=== PATIENT | female | born 1985 | race Caucasian/White ===

== ENCOUNTER 2019-11-20 09:43 | Emergency (ER) | payer OTHER, SELFPAY ==
[~2019-11-20] VITALS: Ht 177.8 cm; Wt 100.9 kg
[2019-11-20] MEDS ORDERED: SYNT175T2 (09:52)
[2019-11-20 10:27] LABS: BASO % 0.2 % (0.0-1.0); EOS # 0.2 10^3/uL (0.0-0.5); EOS % 3.5 % (0.0-3.0); HEMATOCRIT 42.6 % (36.0-47.0); HEMOGLOBIN 14.3 g/dl (12.0-15.5); LYMPH # 2.3 10^3/uL (1.5-5.0); LYMPH % 40.4 % (24.0-44.0); MEAN CORPUSCULAR HEMOGLOBIN 30.5 pg (27.0-33.0); MEAN CORPUSCULAR HGB CONC 33.6 g/dl (32.0-36.5); MEAN CORPUSCULAR VOLUME 90.8 fl (80.0-96.0); MONO # 0.4 10^3/uL (0.0-0.8); MONO % 6.7 % (0.0-5.0); NEUTROPHILS # 2.8 10^3/uL (1.5-8.5); PLATELET COUNT, AUTOMATED 200 10^3/uL (150-450); RED BLOOD COUNT 4.69 10^6/uL (4.00-5.40); WHITE BLOOD COUNT 5.7 10^3/uL (4.0-10.0)
[2019-11-20] MEDS ORDERED: KETOROLAC 30 MG/ML 1ML VIAL IM ONE (10:30)
[2019-11-20 10:48] LABS: ERYTHROCYTE SEDIMENTATION RATE 9 mm/hr (0-20)
[2019-11-20 11:05] VITALS: BP 110/65
[2019-11-20] MEDS ORDERED: PERCOCET 5MG/325MG TAB PO ONE (11:15)
[2019-11-20] MEDS ORDERED: NAPR-837 PO (11:49)
[2019-11-21] MEDS ORDERED: ULTR50TA8 PO (11:49)
[2019-11-21] MEDS ORDERED: PRED20TA PO (11:49)
--- NOTE | 2019-12-09 08:32 | REP ---
DUPLEX EXTREMITY VENOUS ULTRASOUND RIGHT LOWER EXTREMITY (REPEAT DICTATION) HISTORY: Pain. Preliminary report is provided at the time of exam by [facility]. FINDINGS: Deep veins are anechoic and fully compressible from the groin to the popliteal fossa in the right lower extremity on two-dimensional scanning. Color flow imaging is homogeneous. Spectral Doppler interrogation demonstrates intact respiration various and flow and normal manual augmentation and flow. There is no evidence of deep vein thrombosis (DVT). IMPRESSION: Negative right lower extremity duplex venous ultrasound. No evidence of deep vein thrombosis. MTDD
--- NOTE | 2019-12-09 08:33 | REP ---
RIGHT KNEE SERIES: 5-VIEW (REPEAT DICTATION) Preliminary report is provided. HISTORY: Pain in the right knee. Preliminary report is provided at the time of exam by [facility]. FINDINGS: Five views of the right knee demonstrate normal bones, joints, and soft tissues. No fracture or subluxation is seen. IMPRESSION: No traumatic abnormality noted. MTDD
--- NOTE | 2019-12-09 08:34 | REP ---
PELVIS RIGHT HIP (REPEAT DICTATION) HISTORY: Pain in the right hip. Preliminary report is provided at the time of exam by [facility]. FINDINGS: AP view of the pelvis and AP and frog leg views of the right hip are obtained. Femoral head is smooth and round. Hip joint space is preserved. Periarticular soft tissues are unremarkable. No fracture is seen. Visualized bowel gas pattern is normal. IMPRESSION: Negative views of the pelvis and right hip. MTDD
== END 2019-11-20 12:04 | disposition home or self-care (01) ==
LOC: M ED 09:43
DX: M79.651 Pain in right thigh (principal); E06.3 Autoimmune thyroiditis; F17.210 Nicotine dependence, cigarettes, uncomplicated; Z88.8 Allergy status to other drugs, medicaments and biological substances; Z79.899 Other long term (current) drug therapy
CPT/HCPCS: 36415; 73502; 73564; 85025; 85652; 86140; 93971; 96372; 99284; J1885

== ENCOUNTER 2019-11-21 08:17 | Emergency (ER) | payer OTHER ==
[~2019-11-21 08:17] MED LIST: NAPR-837 PO; SYNT175T2
[2019-11-21] MEDS ORDERED: MORPHINE 2 MG/ML 1ML VIAL (J2270) IV ONE (09:15)
[2019-11-21] MEDS ORDERED: methylPREDNISolone 125MG 2ML VIAL IV ONE (09:15)
[2019-11-21 09:44] LABS: BASO % 0.2 % (0.0-1.0); EOS # 0.2 10^3/uL (0.0-0.5); EOS % 2.8 % (0.0-3.0); HEMATOCRIT 39.6 % (36.0-47.0); HEMOGLOBIN 13.5 g/dl (12.0-15.5); LYMPH # 2.4 10^3/uL (1.5-5.0); LYMPH % 44.9 % (24.0-44.0); MEAN CORPUSCULAR HEMOGLOBIN 30.7 pg (27.0-33.0); MEAN CORPUSCULAR HGB CONC 34.1 g/dl (32.0-36.5); MONO # 0.3 10^3/uL (0.0-0.8); MONO % 5.4 % (0.0-5.0); NEUTROPHILS # 2.5 10^3/uL (1.5-8.5); NEUTROPHILS % 46.5 % (36.0-66.0); PLATELET COUNT, AUTOMATED 178 10^3/uL (150-450); WHITE BLOOD COUNT 5.4 10^3/uL (4.0-10.0)
[2019-11-21] MEDS ORDERED: ALBUTEROL 90 MCG/ACT 8GM HFA INHALER INH ONE (09:45)
[2019-11-21 10:06] LABS: BLOOD UREA NITROGEN 6 MG/DL (7-18); CALCIUM LEVEL 8.8 MG/DL (8.5-10.1); CARBON DIOXIDE LEVEL 26 MEQ/L (21-32); CHLORIDE LEVEL 109 MEQ/L (98-107); CPK CREATINE PHOSPHOKINASE 187 U/L (26-192); CREATININE FOR GFR 1.04 MG/DL (0.55-1.30); GLOMERULAR FILTRATION RATE > 60.0 (>60); GLUCOSE, FASTING 99 MG/DL (70-100); POTASSIUM SERUM 3.8 MEQ/L (3.5-5.1); SODIUM LEVEL 139 MEQ/L (136-145)
[2019-11-21] MEDS ORDERED: PERCOCET 5MG/325MG TAB PO ONE (10:15)
[2019-11-21] MEDS ORDERED: ISOVUE-370 76% 100ML VIAL As Ordered ONE (10:16)
--- NOTE | 2019-11-21 11:23 | REPVR ---
PROCEDURE INFORMATION: Exam: CT Lumbar Spine Without Contrast Exam date and time: 11/21/2019 11:00 AM Age: 34 years old Clinical indication: Pain; Lumbago with sciatica; Additional info: Rlq, thigh pain TECHNIQUE: Imaging protocol: Computed tomography images of the lumbar spine without contrast. Radiation optimization: All CT scans at this facility use at least one of these dose optimization techniques: automated exposure control; mA and/or kV adjustment per patient size (includes targeted exams where dose is matched to clinical indication); or iterative reconstruction. COMPARISON: No relevant prior studies available. FINDINGS: Vertebrae: No acute lumbar spine fracture or traumatic malalignment. Discs/Spinal canal/Neural foramina: Circumferential disc bulge and right foraminal eccentric discogenic osteophytes are present at L5-S1, with likely moderate right neural foraminal narrowing. Mild multilevel degenerative disc disease. Soft tissues: Unremarkable. IMPRESSION: Degenerative changes at L5-S1 likely with moderate right neural foraminal narrowing. Degenerative findings could be better assessed with MRI. Electronically signed by: Raad Greene On 11/21/2019 11:23:08 AM
[2019-11-21] MEDS ORDERED: ULTR50TA8 PO (11:49)
[2019-11-21] MEDS ORDERED: PRED20TA PO (11:49)
[2019-11-21 11:58] VITALS: BP 123/68
--- NOTE | 2019-11-22 12:42 | ED PDOC ---
Post-Departure Follow-Up ct ls spine faxed to [facility] [place] for fu Mahamed Berger MD Nov 22, 2019 12:42
== END 2019-11-21 12:00 | disposition home or self-care (01) ==
LOC: M ED 08:17 → EDBD 08:17 → M ED 12:00
DX: M51.37 Other intervertebral disc degeneration, lumbosacral region (principal); M54.17 Radiculopathy, lumbosacral region; Z79.899 Other long term (current) drug therapy; Z88.6 Allergy status to analgesic agent
CPT/HCPCS: 72131; 72193; 80048; 82550; 85025; 86140; 96374; 96375; 99284; J2270; J2930; Q9967

== ENCOUNTER → 2019-12-03 | Outpatient (CLI) | payer MEDICAID, SELFPAY ==
[~2019-12-03] MED LIST changes: +DUCO5TAB2 PO; +GABA-1171 PO; +MIRA3350 PO; +MORP15TASA PO; +ONDA-83 PO; +PERC5TAB12 PO; +PRED20TA PO; +ULTR50TA8 PO
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
== END ==
LOC: M RAD 07:08
PROVIDERS: ATTEND Physician Assistant
DX: M79.651 Pain in right thigh (principal)

== ENCOUNTER → 2019-12-14 | Outpatient (CLI) | payer MEDICAID ==
--- NOTE | 2019-12-14 09:02 | REPVR ---
PROCEDURE INFORMATION: Exam: MR Lumbar Spine Without Contrast. Exam date and time: 12/14/2019 7:54 AM Age: 34 years old Clinical indication: Low back pain; Additional info: Disc degeneration, R/O herniation TECHNIQUE: Imaging protocol: Multiplanar magnetic resonance images of the lumbar spine without intravenous contrast. COMPARISON: CT Spine, lumbar w/o contrast 11/21/2019 10:55 AM FINDINGS: Vertebrae: There is no fracture or listhesis. Aside from endplate changes at L2/3 and L5/S1, marrow signal is within normal limits. Spinal cord: Normal signal. No cord compression. L1-L2: There is shallow disc bulging. There is mild facet hypertrophy. There is mild bilateral neural foraminal narrowing. L2-L3: There is shallow disc bulging with a central annular tear. There is mild facet hypertrophy. There is mild bilateral neural foraminal narrowing. L3-L4: There is shallow disc bulging with a central annular tear. There is [id number]-[id number] facet hypertrophy. There is moderate right and mqvj-[id number]-[id number] left neural foraminal narrowing. L4-L5: There is diffuse disc bulging. There is moderate facet hypertrophy. There is mild bilateral lateral recess stenosis. There is mild canal stenosis. There is moderate right and mild left neural foraminal narrowing. L5-S1: There is diffuse disc bulging with a large right inferior subarticular disc extrusion. This effaces the right lateral recess and displaces the right S1 nerve root posteriorly. There is moderate to severe facet hypertrophy. There is moderate right and mild left neural foraminal narrowing. Soft tissues: Unremarkable. IMPRESSION: Large right inferior subarticular disc extrusion at L5/S1 results in probable compromise of the right S1 nerve root. Electronically signed by: Marcia Ramos On 12/14/2019 09:02:43 AM
== END ==
LOC: M RAD 07:09
PROVIDERS: ATTEND Physician Assistant
DX: M51.36 Other intervertebral disc degeneration, lumbar region (principal); M51.27 Other intervertebral disc displacement, lumbosacral region

== ENCOUNTER 2019-12-17 23:36 | Emergency (ER) | payer MEDICAID, OTHER ==
[~2019-12-17] VITALS: Ht 177.8 cm; Wt 104.5 kg
[~2019-12-17 23:36] MED LIST changes: -DUCO5TAB2 PO; -GABA-1171 PO; -MIRA3350 PO; -MORP15TASA PO; -ONDA-83 PO; -PERC5TAB12 PO
[2019-12-17] MEDS ORDERED: GABA-1171 PO (23:47)
[2019-12-18 01:12] VITALS: BP 139/83
[2019-12-19] MEDS ORDERED: PERC5TAB12 PO (06:13)
[2019-12-19] MEDS ORDERED: MORP15TASA PO (07:18)
== END 2019-12-18 01:16 | disposition home or self-care (01) ==
LOC: M ED 23:36
DX: Z11.59 Encounter for screening for other viral diseases (principal); Z20.828 Contact with and (suspected) exposure to other viral communicable diseases; M54.5 Low back pain; Z79.899 Other long term (current) drug therapy
CPT/HCPCS: 99283; U0002

== ENCOUNTER 2019-12-18 06:17 | Day surgery (SDC) | payer MEDICAID, OTHER ==
[~2019-12-18] VITALS: Ht 180.3 cm; Wt 99.1 kg
[2019-12-18] VITALS (7 sets, daily range): BP systolic 111–149; BP diastolic 64–85
[~2019-12-18 06:17] MED LIST changes: +CelecoXIB (CeleBREX) 100 MG CAP PO ONE; +GABA-1171 PO; +NORCO, ANEXSIA 5/325MG TABLET (HYDROcodone/ACETAMINOPHEN) PO ONE
[2019-12-18] MEDS ORDERED: LIDOCAINE 2% 100MG/5ML SDV (FOR ANES.) As Ordered ONE (07:49)
[2019-12-18] MEDS ORDERED: ROCURONIUM BROMIDE 50 MG/5 ML VIAL As Ordered ONE ×2 (07:49→09:12)
[2019-12-18] MEDS ORDERED: HYDROmorphone HCL 2 MG/ML 1ML VIAL (J1170) As Ordered ONE (07:49)
[2019-12-18] MEDS ORDERED: propofoL 200 MG/20 ML VIAL As Ordered ONE (07:49)
[2019-12-18] MEDS ORDERED: KETAMINE HCL 200 MG/20 ML VIAL As Ordered ONE (07:49)
[2019-12-18] MEDS ORDERED: MIDAZOLAM INJ 2MG/2ML VIAL (J2250 PER 1MG) As Ordered ONE (07:49)
[2019-12-18] MEDS ORDERED: ONDANSETRON 4MG/2ML VIAL As Ordered ONE (07:50)
[2019-12-18] MEDS ORDERED: dexameTHASONE 4 MG/ML 1ML VIAL (J1100 PER 1MG) As Ordered ONE (07:50)
[2019-12-18] MEDS ORDERED: BUPIVACAINE/EPIN 0.25% 30 ML VIAL As Ordered ONE (07:54)
[2019-12-18] MEDS ORDERED: BACITRACIN PWD 50,000 UNITS VIAL As Ordered ONE (07:54)
[2019-12-18] MEDS ORDERED: THROMBIN SOLN 20,000 UNITS KIT As Ordered ONE (07:54)
[2019-12-18] MEDS ORDERED: NORCO, ANEXSIA 5/325MG TABLET (HYDROcodone/ACETAMINOPHEN) As Ordered ONE (08:16)
[2019-12-18] MEDS ORDERED: ceFAZolin 2 GM/D5W 50 ML IV BAG (J0690 PER 500MG) As Ordered ONE (08:19)
[2019-12-18] MEDS ORDERED: GABAPENTIN 300 MG CAP PO ONE (08:21)
[2019-12-18] MEDS ORDERED: ceFAZolin SOD 2 GM in IV 1 EA IV ONE (08:30)
[2019-12-18] MEDS ORDERED: METOCLOPRAMIDE INJ 10MG/2ML VIAL (J2765 PER 1) As Ordered ONE (09:21)
[2019-12-18] MEDS ORDERED: SUGAMMADEX SODIUM 500 MG/5 ML VIAL (BRIDION) As Ordered ONE ×2 (09:23→10:43)
[2019-12-18] MEDS ORDERED: GLYCOPYRROLATE INJ 0.2 MG/ML 2 ML VIAL As Ordered ONE (10:05)
[2019-12-18] MEDS ORDERED: HYDROMORPHONE HCL 0.5 MG/ 0.5 ML SYRINGE (J1170 PER 1) As Ordered ONE ×3 (11:11→11:41)
[2019-12-18] MEDS: HYDROMORPHONE HCL 0.5 MG/ 0.5 ML SYRINGE (J1170 PER 1) IV PRN ×6 (11:13→21:28)
[2019-12-18] MEDS ORDERED: PROMETHAZINE INJ 25 MG/ML VIAL (J2550) IV PRN ×2 (11:30→18:00)
[2019-12-18] MEDS ORDERED: METOCLOPRAMIDE INJ 10MG/2ML VIAL (J2765 PER 1) IV PRN (11:30)
[2019-12-18] MEDS ORDERED: PERCOCET 5MG/325MG TAB PO PRN ×2 (11:30)
[2019-12-18] MEDS ORDERED: LR 1,000 ML IV SCH ×2 (11:30)
[2019-12-18] MEDS ORDERED: ONDANSETRON 4MG/2ML VIAL IV PRN ×2 (11:30)
[2019-12-18] MEDS ORDERED: PERCOCET 5MG/325MG TAB As Ordered ONE (11:53)
[2019-12-18] MEDS ORDERED: METAMUCIL (PSYLLIUM) PACKET PO ONE (12:00)
[2019-12-18] MEDS ORDERED: CelecoXIB (CeleBREX) 100 MG CAP PO ONE (14:00)
[2019-12-18] MEDS: CYCLOBENZAPRINE 10MG TABLET PO PRN (14:58)
[2019-12-18] MEDS: PERCOCET 5MG/325MG TAB PO PRN (14:58)
[2019-12-19] MEDS: PERCOCET 5MG/325MG TAB PO PRN ×3 (00:18→09:26)
[2019-12-19 02:00] VITALS: BP 115/72
[2019-12-19] MEDS: HYDROMORPHONE HCL 0.5 MG/ 0.5 ML SYRINGE (J1170 PER 1) IV PRN (02:34)
[2019-12-19] MEDS: CYCLOBENZAPRINE 10MG TABLET PO PRN (04:33)
[2019-12-19 04:39] VITALS: BP 129/76
[2019-12-19] MEDS ORDERED: PERC5TAB12 PO (06:13)
[2019-12-19] MEDS ORDERED: MORP15TASA PO (07:18)
[2019-12-19] MEDS ORDERED: CelecoXIB 400 MG CAP PO ONE (09:00)
[2019-12-19] MEDS ORDERED: MORPHINE 15 MG SA TAB PO SCH (09:00)
--- NOTE | 2019-12-20 08:36 | RO ---
DATE OF OPERATION: 12/18/2019 PREOPERATIVE DIAGNOSIS: Lumbar spinal stenosis with neurogenic claudication/right lower extremity radiculopathy, L5/S1 secondary to large extruded inferiorly migrated disk herniation. POSTOPERATIVE DIAGNOSIS: Lumbar spinal stenosis with neurogenic claudication/right lower extremity radiculopathy, L5/S1 secondary to large extruded inferiorly migrated disk herniation. PROCEDURE: Right S1 unilateral laminectomy for decompression of the thecal sac traversing and exiting nerve roots and exposure of extruded migrated disk material. L5 unilateral laminectomy additional level for decompression of thecal sac and exiting its traversing nerve roots. INTRAOPERATIVE FINDINGS: Included large extruded disk herniation inferiorly migrated subligamentous producing severe spinal stenosis. SURGEON: Hasmukh Corbin MD CHIEF LEARNING OFFICER: KARL Florence ANESTHESIA: General, Dr. Rodriguez ESTIMATED BLOOD LOSS: Less than 50, replaced with Crystalloid COMPLICATIONS: No complications. INDICTIONS: 34-year-old female with intractable discomfort radiating down the right lower extremity for a period of more than 5 weeks. Symptoms include sensory deficit, motor deficit and severe pain, MRI evidence of large inferiorly migrated right-sided disk extrusion producing severe spinal stenosis in the right side of the spinal canal. Consent reviewed in detail including a rommel discussion with pathology involved, with procedure proposed, alternatives including doing nothing, risks including but not limited to pain, failure, infection, bleeding, blood loss, incomplete relief of symptoms, need for additional surgery and other issues. This surgery was scheduled urgently because of the neurologic deficit, as well as the patient's intractable discomfort. OPERATIVE COURSE: Identified in the holding area, side and site verified, brought to the operating room. Anesthesia was administered. She was positioned in the prone position for exposure of the lumbar spine. Time-out was accomplished. The patient was prepped and draped in the usual fashion for exposure. Line of the incision based on palpation of landmark, infiltrated with 25% Marcaine with epinephrine. Mr. Gillespie stood on the left, I stood on the right. I utilized 3.5 Loupe magnification at the beginning of the procedure. 10 blade was utilized to open the incision, developed down to subcuticular tissues to posterior lumbar fascia. Posterior lumbar fascia was reflected off the spinous process of 5, continuing the right side dissection along the L5 lamina exposing the L5/S1 facet complex and exposing S1. Next, high-speed bur was utilized to drill a divot in the posterior lamina of L5 on the right side. Dusty Whittey was placed in the divot. Cross-table lateral x-ray taken to verify level. Next, at this stage, my loupe magnification was removed and the operating microscoped had been draped and was brought into the operating procedure so that Mr. Gillespie could participate and for safe use of the high- speed bur. Mr. Gillespie looked through oculars on the left side and utilized suction, as well as suction Alexandra to assist with exposure and root retraction. Next, I utilized the high speech bur to implement a right unilateral laminectomy of S1 extending superiorly undercutting the spinous process of S1 extending to the bare area of S1. Care was taken to protect the facet. Medial, [id number]% of the L5/S1 facet complex was removed to allow for exposure. The dissection continued inferiorly through the bare area of S1 and then beyond using high-speed bur. Next, once the bony exposure was accomplished by utilizing curettes and Kerrisons to remove hypertrophied ligamentum flavum, this exposed the thecal sac. The dissection allowed exposure of the S1 and S2 nerve roots, as well as the thecal sac inferiorly. Next, the L5 nerve root was also able to be palpated in the neural foramina. Next, Dusty Whittey was utilized to sweep the S1 and S2 nerve roots over the extruded disk fragment. It was subligamentous. I opened the ligamentum using 11 blade and removed in piecemeal fashion large chunks of extruded discharge material that was causing significant spinal stenosis. Next, I explored superiorly the disk annular complex. The annulus had a compromised annulus. I was able to use the pituitaries and Moctezuma pituitaries to remove additional friable disk material from the L5/S1 interspace/disk space. Next, once this was accomplished, bipolar cautery was utilized for hemostasis; irrigation was accomplished. All retractors were removed. Posterior lumbar fascia re-approximated with interrupted stitch. Scarpas fascia with interrupted stitch. Deep dermis with interrupted stitch. Prineo dressing was applied. The patient was log rolled to the hospital bed, moved to the recovery room in good condition, moving all four extremities. For further details, please refer to medical record. [facility]
--- NOTE | 2019-12-23 07:04 | REP ---
PORTABLE CROSS TABLE LATERAL LUMBAR SPINE: SINGLE VIEW HISTORY: Intraprocedural imaging. FINDINGS: A portable cross table lateral view of the lumbar spine time stamped 9:44 a.m. documents an intraoperative probe in the dorsal aspect of the spinal canal at the level of the L4-5 intervertebral disc. WESLEY
== END 2019-12-19 10:40 | disposition home or self-care (01) ==
LOC: M SDC 06:17 → M MS5PR 06:25 → M SDC 12-19 10:40
PROVIDERS: ATTEND Orthopaedic Surgery
DX: M48.062 Spinal stenosis, lumbar region with neurogenic claudication (principal); E03.9 Hypothyroidism, unspecified; F31.9 Bipolar disorder, unspecified; F32.9 Major depressive disorder, single episode, unspecified; F41.9 Anxiety disorder, unspecified; Z79.899 Other long term (current) drug therapy
CPT/HCPCS: 63030; 63035; 72110; 88304; 96374; 96375; 96376; C1763; J0690; J1100; J1170; J2250; J2405; J2765

== ENCOUNTER 2019-12-29 08:23 | Emergency (ER) | payer MEDICAID, OTHER ==
[~2019-12-29] VITALS: Ht 177.8 cm; Wt 104.5 kg
[2019-12-29 08:23] VITALS: BP 142/79
[~2019-12-29 08:23] MED LIST changes: -CelecoXIB (CeleBREX) 100 MG CAP PO ONE; +MORP15TASA PO; -NORCO, ANEXSIA 5/325MG TABLET (HYDROcodone/ACETAMINOPHEN) PO ONE; +PERC5TAB12 PO
[2019-12-29] MEDS ORDERED: ONDA-83 PO (08:36)
[2019-12-29] MEDS ORDERED: DUCO5TAB2 PO (08:36)
[2019-12-29] MEDS ORDERED: NS 1,000 ML IV ONE (09:00)
[2019-12-29 09:21] LABS: BASO % 0.2 % (0.0-1.0); EOS # 0.3 10^3/uL (0.0-0.5); HEMATOCRIT 41.6 % (36.0-47.0); HEMOGLOBIN 13.5 g/dl (12.0-15.5); LYMPH # 2.7 10^3/uL (1.5-5.0); LYMPH % 25.9 % (24.0-44.0); MEAN CORPUSCULAR HEMOGLOBIN 29.7 pg (27.0-33.0); MEAN CORPUSCULAR HGB CONC 32.5 g/dl (32.0-36.5); MEAN CORPUSCULAR VOLUME 91.4 fl (80.0-96.0); MONO # 0.7 10^3/uL (0.0-0.8); MONO % 6.3 % (0.0-5.0); NEUTROPHILS # 6.7 10^3/uL (1.5-8.5); NEUTROPHILS % 64.1 % (36.0-66.0); PLATELET COUNT, AUTOMATED 245 10^3/uL (150-450); RED BLOOD COUNT 4.55 10^6/uL (4.00-5.40); WHITE BLOOD COUNT 10.4 10^3/uL (4.0-10.0)
[2019-12-29] MEDS ORDERED: ISOVUE-370 76% 100ML VIAL As Ordered ONE (09:37)
[2019-12-29 09:55] LABS: ALBUMIN 3.9 GM/DL (3.2-5.2); ALT/SGPT 18 U/L (12-78); BILIRUBIN,DIRECT < 0.1 MG/DL (0.0-0.2); BILIRUBIN,TOTAL 0.3 MG/DL (0.2-1.0); LIPASE 78 U/L (73-393); TOTAL PROTEIN 7.7 GM/DL (6.4-8.2)
--- NOTE | 2019-12-29 10:05 | REPVR ---
PROCEDURE INFORMATION: Exam: CT Abdomen And Pelvis With Contrast Exam date and time: 12/29/2019 9:46 AM Age: 34 years old Clinical indication: Abdominal pain; Additional info: Right lower quadrant pain TECHNIQUE: Imaging protocol: Computed tomography of the abdomen and pelvis with intravenous contrast. Radiation optimization: All CT scans at this facility use at least one of these dose optimization techniques: automated exposure control; mA and/or kV adjustment per patient size (includes targeted exams where dose is matched to clinical indication); or iterative reconstruction. Contrast material: ISO 370; Contrast volume: 100 ml; Contrast route: INTRAVENOUS (IV); COMPARISON: CT PEL W/IV CONTRAST ONLY 11/21/2019 10:55 AM FINDINGS: Liver: Normal. No mass. Gallbladder and bile ducts: The gallbladder is surgically absent, with metallic clips in the gallbladder fossa. Pancreas: Normal. No ductal dilation. Spleen: The spleen is mildly enlarged measuring 14.0 cm transversely. Adrenals: Normal. No mass. Kidneys and ureters: Normal. No hydronephrosis. Stomach and bowel: There is mildly increased stool noted in the ascending and transverse colon. Appendix: The vermiform appendix is not identified on this examination. There is, however, no pericecal abnormality to suggest appendicitis. Intraperitoneal space: Unremarkable. No free air. No significant fluid collection. Vasculature: Unremarkable. No abdominal aortic aneurysm. Lymph nodes: No enlarged lymph nodes. Urinary bladder: The urinary bladder is decompressed and difficult to assess. Reproductive: Unremarkable as visualized. Bones/joints: Unremarkable. No acute fracture. Soft tissues: A tiny paraumbilical hernia containing only abdominal fat is noted. IMPRESSION: 1. Prior cholecystectomy. 2. Mild splenomegaly. 3. Mild abdominal colonic constipation. Electronically signed by: Harsh Fernandez On 12/29/2019 10:05:01 AM
[2019-12-29] MEDS ORDERED: METHYLNALTREXONE BROMIDE 12 MG/0.6 ML VIAL (RELISTOR) SC ONE (10:15)
--- NOTE | 2019-12-29 10:58 | REPVR ---
PROCEDURE INFORMATION: Exam: US Pelvis Complete, Transabdominal and US Pelvis, Transvaginal Exam date and time: 12/29/2019 10:43 AM Age: 34 years old Clinical indication: Pelvic pain; Patient HX: Had spinal surgery 1.5 weeks ago; Additional info: Rlq pain/previous ovarian cyst TECHNIQUE: Imaging protocol: Real-time transabdominal and transvaginal pelvic ultrasound (complete) with image documentation. Transvaginal imaging was used for better evaluation of the endometrium, adnexa, and/or cervix. COMPARISON: CT ABD/PEL W/IV CONTRAST ONLY 12/29/2019 9:36 AM FINDINGS: Uterus/cervix: Uterus anteverted, 10.5 x 5.0 x 5.4 cm transabdominally; 10.1 x 4.5 x 5.8 cm transvaginally. Multiple uterine cervical nabothian cysts, largest 9 mm. Endometrium 5.0 mm transabdominally; 4.5 mm transvaginally. Right adnexa: Right ovary not identified transabdominally. 2.5 x 2.4 x 1.6 cm transvaginally. No cyst or mass. Normal color and pulsed Doppler. Left adnexa: Left ovary 1.7 x 1.6 x 1.6 cm transabdominally; 2.4 x 2.5 x 2.1 cm transvaginally. Approximately 16 mm collapsed corpus luteum. Normal color and pulsed Doppler. Intraperitoneal space: No intraperitoneal free fluid. Urinary bladder: Normal. IMPRESSION: No acute abnormality identified. Electronically signed by: Harsh Fernandez On 12/29/2019 10:57:50 AM
[2019-12-29] MEDS ORDERED: KETOROLAC 30 MG/ML 1ML VIAL IV ONE (11:00)
[2019-12-29] MEDS ORDERED: DICYCLOMINE 10 MG CAP PO ONE (12:00)
[2019-12-29] MEDS ORDERED: MIRA3350 PO (12:43)
== END 2019-12-29 13:17 | disposition home or self-care (01) ==
LOC: M ED 08:23
DX: K59.09 Other constipation (principal); E03.9 Hypothyroidism, unspecified; R16.1 Splenomegaly, not elsewhere classified; M54.9 Dorsalgia, unspecified; R51.9 Headache, unspecified; F31.9 Bipolar disorder, unspecified; F41.9 Anxiety disorder, unspecified; Z88.8 Allergy status to other drugs, medicaments and biological substances; Z79.899 Other long term (current) drug therapy
CPT/HCPCS: 36415; 74177; 76830; 76856; 80047; 80076; 81001; 83605; 83690; 84443; 84702; 85025; 93976; 96361; 96372; 96374; 99284; J1885; Q9967

== ENCOUNTER 2020-08-12 15:58 | Emergency (ER) | payer MEDICAID, OTHER ==
[~2020-08-12] VITALS: Ht 180.3 cm; Wt 93.2 kg
[~2020-08-12 15:58] MED LIST changes: +DUCO5TAB2 PO; +MIRA3350 PO; +ONDA-83 PO
--- NOTE | 2020-08-12 18:03 | REP ---
INDICATION: trauma, right radiculopathy COMPARISON: 12/18/2019 TECHNIQUE: AP, lateral, bilateral oblique, and coned-down views of the lumbar spine. FINDINGS: Alignment and lordosis maintained. Vertebral bodies are intact. No acute fracture/compression injury or subluxation. No obvious spondylolysis or spondylolisthesis. Endplate sclerosis and disc space narrowing at L5-S1 unchanged. IMPRESSION: No acute fracture/compression injury or subluxation.. <Electronically signed by Kristofer Antonio > 08/12/20 [id number]
[2020-08-12] MEDS ORDERED: ACETAMINOPHEN 325 MG TAB PO ONE (19:25)
[2020-08-12] MEDS ORDERED: traMADol 50 MG TAB PO ONE (19:25)
[2020-08-12] MEDS ORDERED: AUGM875T28 PO (20:48)
[2020-08-12] MEDS ORDERED: VENTAER INH (20:48)
[2020-08-12] MEDS ORDERED: TESS100C PO (20:48)
[2020-08-12] MEDS ORDERED: AUGMENTIN 875 MG TAB PO ONE (20:50)
[2020-08-12 21:32] VITALS: BP 129/58
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
== END 2020-08-12 21:34 | disposition home or self-care (01) ==
LOC: M ED 15:58
DX: S06.0X0A Concussion without loss of consciousness, initial encounter (principal); S33.5XXA Sprain of ligaments of lumbar spine, initial encounter; W50.0XXA Accidental hit or strike by another person, initial encounter; Y92.9 Unspecified place or not applicable; Y93.71 Activity, boxing; Y99.9 Unspecified external cause status; J32.9 Chronic sinusitis, unspecified; J20.9 Acute bronchitis, unspecified; E03.9 Hypothyroidism, unspecified; Z79.899 Other long term (current) drug therapy
CPT/HCPCS: 70450; 72110; 99283; U0003

== ENCOUNTER 2021-04-03 00:30 | Emergency (ER) | payer OTHER ==
[~2021-04-03] VITALS: Ht 180.3 cm; Wt 104.5 kg
[~2021-04-03 00:30] MED LIST changes: +AUGM875T28 PO; +TESS100C PO; +VENTAER INH
[2021-04-03 07:00] VITALS: BP 142/76
== END 2021-04-03 09:52 | disposition home or self-care (01) ==
LOC: M ED 00:30
DX: N81.4 Uterovaginal prolapse, unspecified (principal); R59.0 Localized enlarged lymph nodes; Z87.42 Personal history of other diseases of the female genital tract; N80.9 Endometriosis, unspecified; Z87.19 Personal history of other diseases of the digestive system; Z88.6 Allergy status to analgesic agent
CPT/HCPCS: 76857; 80053; 81001; 84703; 85025; 87808; 87810; 87850; 96374; 99284; J1885

== ENCOUNTER → 2021-04-26 | Outpatient (CLI) | payer OTHER ==
[2021-04-26 13:55] LABS: BASO % 0.1 % (0.0-1.0); EOS # 0.4 10^3/uL (0.0-0.5); EOS % 5.7 % (0.0-3.0); HEMATOCRIT 42.7 % (36.0-47.0); HEMOGLOBIN 13.9 g/dl (12.0-15.5); LYMPH # 3.1 10^3/uL (1.5-5.0); LYMPH % 41.1 % (24.0-44.0); MEAN CORPUSCULAR HGB CONC 32.6 g/dl (32.0-36.5); MEAN CORPUSCULAR VOLUME 92.2 fl (80.0-96.0); MONO # 0.5 10^3/uL (0.0-0.8); MONO % 6.1 % (2.0-8.0); NEUTROPHILS # 3.5 10^3/uL (1.5-8.5); NEUTROPHILS % 46.7 % (36.0-66.0); PLATELET COUNT, AUTOMATED 237 10^3/uL (150-450); RED BLOOD COUNT 4.63 10^6/uL (4.00-5.40); WHITE BLOOD COUNT 7.5 10^3/uL (4.0-10.0)
[2021-04-26 14:24] LABS: ERYTHROCYTE SEDIMENTATION RATE 12 mm/hr (0-20)
[2021-04-26 15:37] LABS: ALT/SGPT 22 U/L (12-78); BILIRUBIN,TOTAL 0.3 MG/DL (0.2-1.0); BLOOD UREA NITROGEN 11 MG/DL (7-18); C REACTIVE PROTEIN QUANTITATIV 0.73 MG/DL (0.00-0.30); CALCIUM LEVEL 9.2 MG/DL (8.5-10.1); CARBON DIOXIDE LEVEL 29 MEQ/L (21-32); CHLORIDE LEVEL 104 MEQ/L (98-107); CREATININE FOR GFR 1.02 MG/DL (0.55-1.30); FREE T4 0.61 NG/DL (0.76-1.46); GLOMERULAR FILTRATION RATE > 60.0 (>60); GLUCOSE, FASTING 99 MG/DL (70-100); POTASSIUM SERUM 4.5 MEQ/L (3.5-5.1); SODIUM LEVEL 138 MEQ/L (136-145); TOTAL PROTEIN 7.6 GM/DL (6.4-8.2)
[2021-04-26 16:07] LABS: HEMOGLOBIN A1c 5.3 %
== END ==
LOC: M PLALAB 10:41
PROVIDERS: ATTEND Physician Assistant
DX: E66.9 Obesity, unspecified (principal); Z68.35 Body mass index [BMI] 35.0-35.9, adult; G89.29 Other chronic pain; E03.9 Hypothyroidism, unspecified

== ENCOUNTER → 2021-04-27 | Outpatient (REF) | payer OTHER ==
[2021-04-27 16:36] LABS: APPEARANCE, URINE CLEAR (CLEAR); BACTERIA, URINE AUTO NEGATIVE (NEGATIVE); BILIRUBIN, URINE AUTO NEGATIVE (NEGATIVE); BLOOD, URINE BLOOD NEGATIVE (NEGATIVE); COLOR, URINE YELLOW (YELLOW); GLUCOSE, URINE (UA) AUTO NEGATIVE (NEGATIVE); KETONE, URINE AUTO NEGATIVE (NEGATIVE); LEUKOCYTE ESTERASE, URINE AUTO NEGATIVE (NEGATIVE); NITRITE, URINE AUTO NEGATIVE (NEGATIVE); PROTEIN, URINE AUTO NEGATIVE (NEGATIVE); RBC, URINE AUTO 0 /HPF (0-3); SQUAMOUS EPITHELIAL CELL UR AU 2 /HPF (0-6); UROBILINOGEN, URINE AUTO 0.2 mg/dL (0.0-2.0); WBC, URINE AUTO 0 /HPF (0-3)
== END ==
LOC: M LAB REF 16:09
PROVIDERS: ATTEND Obstetrics & Gynecology
DX: N39.46 Mixed incontinence (principal)

== ENCOUNTER → 2021-06-01 | Outpatient (CLI) | payer OTHER ==
[~2021-06-01] MED LIST changes: +BUPR300T92; +GABA-283 PO; +ONDA4TAB6 PO; +XANA2TAB2 PO
== END ==
LOC: M RAD 17:16
PROVIDERS: ATTEND Physician Assistant
DX: S96.911A Strain of unspecified muscle and tendon at ankle and foot level, right foot, initial encounter (principal); X58.XXXA Exposure to other specified factors, initial encounter; Y92.9 Unspecified place or not applicable; Y93.9 Activity, unspecified; Y99.9 Unspecified external cause status

== ENCOUNTER 2021-06-04 16:05 | Emergency (ER) | payer OTHER ==
[~2021-06-04] VITALS: Ht 182.9 cm; Wt 104.5 kg
[~2021-06-04 16:05] MED LIST changes: -BUPR300T92; -GABA-283 PO; -ONDA4TAB6 PO; -XANA2TAB2 PO
[2021-06-04] MEDS ORDERED: GABA-283 PO (16:21)
[2021-06-04] MEDS ORDERED: BUPR300T92 (16:21)
[2021-06-04] MEDS ORDERED: XANA2TAB2 PO (16:21)
[2021-06-04] MEDS ORDERED: ONDANSETRON 4MG/2ML VIAL IV ONE (18:45)
[2021-06-04] MEDS ORDERED: KETOROLAC 30 MG/ML 1ML VIAL IV ONE ×2 (18:45→20:00)
[2021-06-04] MEDS ORDERED: NS 1,000 ML IV ONE (18:45)
[2021-06-04 19:18] LABS: BASO % 0.2 % (0.0-1.0); EOS # 0.4 10^3/uL (0.0-0.5); EOS % 4.8 % (0.0-3.0); HEMATOCRIT 41.8 % (36.0-47.0); HEMOGLOBIN 14.3 g/dl (12.0-15.5); LYMPH # 3.5 10^3/uL (1.5-5.0); LYMPH % 43.1 % (24.0-44.0); MEAN CORPUSCULAR HEMOGLOBIN 29.9 pg (27.0-33.0); MEAN CORPUSCULAR HGB CONC 34.2 g/dl (32.0-36.5); MEAN CORPUSCULAR VOLUME 87.3 fl (80.0-96.0); MONO # 0.6 10^3/uL (0.0-0.8); MONO % 7.5 % (2.0-8.0); NEUTROPHILS # 3.6 10^3/uL (1.5-8.5); NEUTROPHILS % 44.2 % (36.0-66.0); PLATELET COUNT, AUTOMATED 238 10^3/uL (150-450); RED BLOOD COUNT 4.79 10^6/uL (4.00-5.40); WHITE BLOOD COUNT 8.1 10^3/uL (4.0-10.0)
[2021-06-04 19:35] LABS: BLOOD UREA NITROGEN 7 MG/DL (7-18); CARBON DIOXIDE LEVEL 30 MEQ/L (21-32); CHLORIDE LEVEL 106 MEQ/L (98-107); CREATININE FOR GFR 1.07 MG/DL (0.55-1.30); GLOMERULAR FILTRATION RATE > 60.0 (>60); GLUCOSE, FASTING 95 MG/DL (70-100); POTASSIUM SERUM 3.7 MEQ/L (3.5-5.1); SODIUM LEVEL 141 MEQ/L (136-145)
[2021-06-04] MEDS ORDERED: METOCLOPRAMIDE INJ 10MG/2ML VIAL (J2765 PER 1) IV ONE (20:00)
[2021-06-04] MEDS ORDERED: MAG SULF 1GM/100ML (MAG RUN) 1 GM in IV 1 EA IV ONE (21:25)
[2021-06-04] MEDS ORDERED: diphenhydrAMINE 50MG/ML VIAL (J1200) IV ONE (21:30)
[2021-06-04] MEDS ORDERED: ONDA4TAB6 PO (22:56)
[2021-06-04] MEDS ORDERED: ONDANSETRON 4MG ORAL DISINTEGRATING TAB PO ONE (23:05)
[2021-06-04 23:10] VITALS: BP 134/65
== END 2021-06-04 23:13 | disposition home or self-care (01) ==
LOC: M ED 16:05
DX: S06.0X0A Concussion without loss of consciousness, initial encounter (principal); W50.0XXA Accidental hit or strike by another person, initial encounter; R11.2 Nausea with vomiting, unspecified; F41.8 Other specified anxiety disorders; M51.26 Other intervertebral disc displacement, lumbar region; F31.9 Bipolar disorder, unspecified; Z88.6 Allergy status to analgesic agent; Y92.9 Unspecified place or not applicable; Y93.75 Activity, martial arts; Y99.9 Unspecified external cause status
CPT/HCPCS: 70450; 80048; 85025; 96361; 96365; 96375; 99284; J1200; J1885; J2405; J2765; J3475

== ENCOUNTER 2021-07-15 22:56 | Emergency (ER) | payer OTHER ==
[~2021-07-15] VITALS: Ht 180.3 cm; Wt 111.4 kg
[~2021-07-15 22:56] MED LIST changes: +BUPR300T92; +EUTH150T PO; +FERR32TA PO; +GABA-283 PO; +HYDR-4571 PO; +IBUP200C33 PO; +ONDA4TAB6 PO; +RA M500C PO; +XANA2TAB2 PO
[2021-07-16 00:10] LABS: BASO % 0.2 % (0.0-1.0); EOS % 0.1 % (0.0-3.0); HEMATOCRIT 39.7 % (36.0-47.0); HEMOGLOBIN 13.6 g/dl (12.0-15.5); LYMPH % 10.9 % (24.0-44.0); MEAN CORPUSCULAR HEMOGLOBIN 29.9 pg (27.0-33.0); MEAN CORPUSCULAR HGB CONC 34.3 g/dl (32.0-36.5); MEAN CORPUSCULAR VOLUME 87.3 fl (80.0-96.0); MONO # 0.7 10^3/uL (0.0-0.8); MONO % 7.1 % (2.0-8.0); NEUTROPHILS # 7.5 10^3/uL (1.5-8.5); NEUTROPHILS % 80.8 % (36.0-66.0); PLATELET COUNT, AUTOMATED 190 10^3/uL (150-450); RED BLOOD COUNT 4.55 10^6/uL (4.00-5.40); WHITE BLOOD COUNT 9.2 10^3/uL (4.0-10.0)
[2021-07-16 00:28] LABS: ALBUMIN 3.8 GM/DL (3.2-5.2); ALT/SGPT 35 U/L (12-78); BILIRUBIN,DIRECT 0.1 MG/DL (0.0-0.2); BILIRUBIN,TOTAL 0.3 MG/DL (0.2-1.0); BLOOD UREA NITROGEN 10 MG/DL (7-18); CALCIUM LEVEL 9.3 MG/DL (8.5-10.1); CARBON DIOXIDE LEVEL 27 MEQ/L (21-32); CHLORIDE LEVEL 103 MEQ/L (98-107); CREATININE FOR GFR 1.06 MG/DL (0.55-1.30); GLOMERULAR FILTRATION RATE > 60.0 (>60); GLUCOSE, FASTING 126 MG/DL (70-100); LIPASE 87 U/L (73-393); POTASSIUM SERUM 3.3 MEQ/L (3.5-5.1); SODIUM LEVEL 138 MEQ/L (136-145); TOTAL PROTEIN 7.7 GM/DL (6.4-8.2)
[2021-07-16] MEDS ORDERED: ONDANSETRON 4MG/2ML VIAL IV ONE (00:40)
[2021-07-16] MEDS ORDERED: MORPHINE 4 MG/ML 1ML VIAL/SYRINGE IV ONE ×2 (00:40→01:55)
[2021-07-16] MEDS ORDERED: POTASSIUM CHLORIDE 10MEQ SR TABLET PO ONE (00:40)
[2021-07-16] MEDS ORDERED: NS 1,000 ML IV ONE ×2 (01:05)
[2021-07-16] MEDS ORDERED: KETOROLAC 30 MG/ML 1ML VIAL IV ONE (01:50)
[2021-07-16] MEDS ORDERED: METOCLOPRAMIDE INJ 10MG/2ML VIAL (J2765 PER 1) IV ONE (02:00)
[2021-07-16] MEDS ORDERED: PERCOCET 5MG/325MG TAB PO ONE (04:25)
[2021-07-16] MEDS ORDERED: LEVO500T4 PO (06:12)
[2021-07-16] MEDS ORDERED: ONDA4TAB6 PO (06:12)
[2021-07-16] MEDS ORDERED: REGL10TA6 PO (06:12)
[2021-07-16 06:26] VITALS: BP 128/82
[2021-07-16] MEDS ORDERED: LevoFLOXacin 500 MG TABLET PO ONE (07:00)
== END 2021-07-16 06:37 | disposition home or self-care (01) ==
LOC: M ED 22:56
DX: A02.0 Salmonella enteritis (principal); E86.0 Dehydration; F41.9 Anxiety disorder, unspecified; F32.A Depression, unspecified
CPT/HCPCS: 74176; 80048; 80076; 81001; 83690; 83735; 84443; 85025; 87507; 93041; 96361; 96374; 96375; 99285; J2270; J2405; J2765

== ENCOUNTER 2021-11-02 16:37 | Inpatient (IN) | payer MEDICAID, OTHER, SELFPAY ==
[~2021-11-02] VITALS: Ht 182.9 cm; Wt 106.0 kg
[~2021-11-02 16:37] MED LIST changes: +LEVO1TAB39 PO; +METH-1164 PO; +REGL10TA6 PO; +SYNT175T2 PO
[2021-11-02 17:51] LABS: HEMOGLOBIN 13.6 g/dl (12.0-15.5); MEAN CORPUSCULAR HEMOGLOBIN 29.1 pg (27.0-33.0); MEAN CORPUSCULAR HGB CONC 33.2 g/dl (32.0-36.5); MEAN CORPUSCULAR VOLUME 87.6 fl (80.0-96.0); PLATELET COUNT, AUTOMATED 214 10^3/uL (150-450); RED BLOOD COUNT 4.68 10^6/uL (4.00-5.40); WHITE BLOOD COUNT 8.1 10^3/uL (4.0-10.0)
[2021-11-02 18:15] LABS: HCG, SERUM QUALITATIVE NEGATIVE (NEGATIVE)
[2021-11-02 18:29] LABS: ALBUMIN 3.9 GM/DL (3.2-5.2); ALT/SGPT 22 U/L (12-78); BILIRUBIN,DIRECT < 0.1 MG/DL (0.0-0.2); BILIRUBIN,TOTAL 0.2 MG/DL (0.2-1.0); BLOOD UREA NITROGEN 11 MG/DL (7-18); CALCIUM LEVEL 9.2 MG/DL (8.5-10.1); CARBON DIOXIDE LEVEL 27 MEQ/L (21-32); CHLORIDE LEVEL 106 MEQ/L (98-107); ETHYL ALCOHOL (ETHANOL) < 0.003 % (0.000-0.010); FREE T4 0.45 NG/DL (0.76-1.46); GLOMERULAR FILTRATION RATE > 60.0 (>60); GLUCOSE, FASTING 106 MG/DL (70-100); POTASSIUM SERUM 3.7 MEQ/L (3.5-5.1); SALICYLATE LEVEL < 1.7 MG/DL (5.0-30.0); SODIUM LEVEL 139 MEQ/L (136-145); TOTAL PROTEIN 7.7 GM/DL (6.4-8.2)
[2021-11-02 18:30] LABS: ACETAMINOPHEN LEVEL < 2.0 UG/ML (10.0-30.0)
[2021-11-02 18:43] LABS: AMPHETAMINES LEVEL URINE NEGATIVE (NEGATIVE); BARBITURATES URINE NEGATIVE (NEGATIVE); BENZODIAZEPINES URINE NEGATIVE (NEGATIVE); CANNABINOIDS URINE POSITIVE (NEGATIVE); COCAINE METABOLITE URINE NEGATIVE (NEGATIVE); METHADONE URINE NEGATIVE (NEGATIVE); OPIATES URINE NEGATIVE (NEGATIVE); PHENCYCLIDINE URINE NEGATIVE (NEGATIVE)
[2021-11-02] MEDS ORDERED: ACETAMINOPHEN TAB 650MG DOSE (2X325MG) PO ONE (20:15)
[2021-11-02 21:03] LABS: RSV AMPLIFICATION NEGATIVE (NEGATIVE)
[2021-11-02] MEDS ORDERED: PREM.6256 PO (22:11)
[2021-11-02] MEDS ORDERED: alprazolam PO (22:17)
[2021-11-02] MEDS ORDERED: HOME MED LIST COMPLETE! XX SCH (22:20)
[2021-11-02] MEDS ORDERED: LORazepam 1 MG TAB PO ONE (22:50)
[2021-11-03] MEDS ORDERED: IBUPROFEN 600MG TAB PO ONE (01:40)
[2021-11-03] MEDS ORDERED: NORCO, ANEXSIA 5/325MG TABLET (HYDROcodone/ACETAMINOPHEN) PO ONE ×3 (05:05→22:00)
[2021-11-03] MEDS ORDERED: ALPRAZolam 0.25 MG TAB PO ONE ×3 (05:05→22:00)
[2021-11-03] MEDS: LEVOTHYROXINE 150MCG TABLET (0.15MG) PO SCH ×2 (05:15→14:11)
[2021-11-03] MEDS ORDERED: ONDANSETRON 4MG ORAL DISINTEGRATING TAB PO ONE ×2 (15:50→23:00)
[2021-11-04] MEDS: LEVOTHYROXINE 150MCG TABLET (0.15MG) PO SCH (06:42)
[2021-11-04] MEDS ORDERED: ONDANSETRON 4MG ORAL DISINTEGRATING TAB PO ONE (09:50)
[2021-11-04] MEDS: ALPRAZolam 0.25 MG TAB PO PRN ×2 (10:44→18:24)
[2021-11-04] MEDS: DOCUSATE SODIUM 100MG CAPSULE PO ONE ×2 (11:06→14:11)
[2021-11-05] MEDS ORDERED: ALPRAZolam 0.25 MG TAB PO ONE (00:35)
[2021-11-05] MEDS ORDERED: diphenhydrAMINE 25MG CAP PO ONE (02:30)
[2021-11-05] MEDS: LEVOTHYROXINE 150MCG TABLET (0.15MG) PO SCH (06:32)
[2021-11-05] MEDS: NICOTINE 21MG/24HR 1 EA TRANSDERMAL TD SCH (09:00)
[2021-11-05] MEDS: ALPRAZolam 0.25 MG TAB PO PRN (11:25)
[2021-11-05] MEDS ORDERED: MAALOX 30 ML SUSP *UDC PO PRN (13:35)
[2021-11-05] MEDS ORDERED: ALBUTEROL 90 MCG/ACT 8GM HFA INHALER INH PRN (13:35)
[2021-11-05] MEDS ORDERED: IBUPROFEN 400MG TAB PO PRN (13:35)
[2021-11-05] MEDS ORDERED: MOM 30ML SUSPENSION UDC PO PRN (13:35)
[2021-11-05 16:02] LABS: RSV AMPLIFICATION NEGATIVE (NEGATIVE)
[2021-11-05 19:01] VITALS: BP 142/98
[2021-11-05] MEDS ORDERED: MECLIZINE 25 MG TABLET PO ONE (21:45)
[2021-11-05] MEDS: traZODone 50 MG TAB PO PRN (21:59)
[2021-11-05] MEDS: diphenhydrAMINE 25MG CAP PO PRN (21:59)
[2021-11-06] MEDS: LEVOTHYROXINE 150MCG TABLET (0.15MG) PO SCH (05:22)
[2021-11-06 06:20] VITALS: BP 117/58
[2021-11-06] MEDS ORDERED: SERTRALINE HCL 50 MG TAB PO SCH (09:00)
[2021-11-06] MEDS: NICOTINE 21MG/24HR 1 EA TRANSDERMAL TD SCH (09:00)
[2021-11-06] MEDS: diphenhydrAMINE 25MG CAP PO PRN ×2 (16:31→23:31)
[2021-11-06 16:55] VITALS: BP 136/80
[2021-11-06] MEDS: PRAZOSIN 1 MG CAP PO SCH (21:53)
[2021-11-06] MEDS: traZODone 50 MG TAB PO PRN (21:54)
[2021-11-06] MEDS: ACETAMINOPHEN TAB 650MG DOSE (2X325MG) PO PRN (23:31)
[2021-11-07] MEDS: LEVOTHYROXINE 150MCG TABLET (0.15MG) PO SCH (05:44)
[2021-11-07 07:21] VITALS: BP 130/82
[2021-11-07 08:40] VITALS: BP 148/88
[2021-11-07] MEDS: SENNA 8.6 MG TAB (SENOKOT) PO PRN (11:38)
[2021-11-07] MEDS: LORazepam 1 MG TAB PO PRN ×2 (11:38→18:20)
[2021-11-07] MEDS: PANTOPRAZOLE 40MG TAB (PROTONIX) PO SCH (11:39)
[2021-11-07 16:30] VITALS: BP 135/84
[2021-11-07] MEDS: ACETAMINOPHEN TAB 650MG DOSE (2X325MG) PO PRN (17:20)
[2021-11-07] MEDS: zolPIDEM TARTRATE 5 MG TAB PO SCH (22:45)
[2021-11-07] MEDS: PRAZOSIN 1 MG CAP PO SCH (22:45)
[2021-11-08] MEDS: LEVOTHYROXINE 150MCG TABLET (0.15MG) PO SCH (05:45)
[2021-11-08] MEDS: PANTOPRAZOLE 40MG TAB (PROTONIX) PO SCH (08:41)
[2021-11-08] MEDS: LORazepam 1 MG TAB PO PRN ×2 (08:42→16:46)
[2021-11-08 09:00] VITALS: BP 167/83
[2021-11-08] MEDS: PARoxetine 20MG TABLET PO SCH (14:06)
[2021-11-08 18:21] VITALS: BP 162/88
[2021-11-08] MEDS: zolPIDEM TARTRATE 5 MG TAB PO SCH (21:28)
[2021-11-08] MEDS: ACETAMINOPHEN TAB 650MG DOSE (2X325MG) PO PRN (21:28)
[2021-11-08] MEDS: PRAZOSIN 1 MG CAP PO SCH (21:29)
[2021-11-09] MEDS: LEVOTHYROXINE 150MCG TABLET (0.15MG) PO SCH (05:37)
[2021-11-09 06:14] VITALS: BP 137/91
[2021-11-09] MEDS: PARoxetine 20MG TABLET PO SCH (08:19)
[2021-11-09] MEDS: PANTOPRAZOLE 40MG TAB (PROTONIX) PO SCH (08:19)
[2021-11-09] MEDS: LORazepam 1 MG TAB PO PRN ×2 (09:15→18:02)
[2021-11-09 16:17] VITALS: BP 129/65
[2021-11-09] MEDS: PRAZOSIN 1 MG CAP PO SCH (21:39)
[2021-11-09] MEDS: zolPIDEM TARTRATE 5 MG TAB PO SCH (21:39)
[2021-11-10] MEDS: LEVOTHYROXINE 150MCG TABLET (0.15MG) PO SCH (05:38)
[2021-11-10 06:26] VITALS: BP 123/75
[2021-11-10] MEDS: PANTOPRAZOLE 40MG TAB (PROTONIX) PO SCH (08:30)
[2021-11-10] MEDS: SENNA 8.6 MG TAB (SENOKOT) PO PRN (08:30)
[2021-11-10] MEDS: PARoxetine 20MG TABLET PO SCH (08:30)
[2021-11-10] MEDS ORDERED: GABAPENTIN 100 MG CAP PO SCH (09:00)
[2021-11-10] MEDS: GABAPENTIN 400MG CAP PO SCH ×3 (09:37→21:58)
[2021-11-10] MEDS: LORazepam 1 MG TAB PO PRN ×2 (09:37→18:20)
[2021-11-10] MEDS: estradioL 1 MG TAB PO SCH (11:43)
[2021-11-10] MEDS: PILL CUTTER 1 EACH XX PRN (11:43)
[2021-11-10] MEDS: medroxyPROGESTERone 5MG TABLET PO SCH (11:44)
[2021-11-10 16:10] VITALS: BP 132/72
[2021-11-10] MEDS: zolPIDEM TARTRATE 5 MG TAB PO SCH (21:58)
[2021-11-10] MEDS: PRAZOSIN 1 MG CAP PO SCH (21:58)
[2021-11-11] MEDS: LEVOTHYROXINE 150MCG TABLET (0.15MG) PO SCH (06:02)
[2021-11-11 06:34] VITALS: BP 118/7
[2021-11-11] MEDS: GABAPENTIN 400MG CAP PO SCH ×3 (08:39→22:12)
[2021-11-11] MEDS: estradioL 1 MG TAB PO SCH (08:40)
[2021-11-11] MEDS: PANTOPRAZOLE 40MG TAB (PROTONIX) PO SCH (08:40)
[2021-11-11] MEDS: PARoxetine 20MG TABLET PO SCH (08:40)
[2021-11-11] MEDS: medroxyPROGESTERone 5MG TABLET PO SCH (08:40)
[2021-11-11] MEDS: LORazepam 1 MG TAB PO PRN ×2 (09:15→20:13)
[2021-11-11 16:16] VITALS: BP 136/79
[2021-11-11] MEDS: SENNA 8.6 MG TAB (SENOKOT) PO PRN (20:11)
[2021-11-11] MEDS: zolPIDEM TARTRATE 5 MG TAB PO SCH (22:11)
[2021-11-11] MEDS: PRAZOSIN 1 MG CAP PO SCH (22:12)
[2021-11-12] MEDS: LEVOTHYROXINE 150MCG TABLET (0.15MG) PO SCH (05:19)
[2021-11-12 06:04] VITALS: BP 122/68
[2021-11-12] MEDS: GABAPENTIN 400MG CAP PO SCH ×3 (08:04→20:16)
[2021-11-12] MEDS: estradioL 1 MG TAB PO SCH (08:04)
[2021-11-12] MEDS: PILL CUTTER 1 EACH XX PRN (08:04)
[2021-11-12] MEDS: PANTOPRAZOLE 40MG TAB (PROTONIX) PO SCH (08:04)
[2021-11-12] MEDS: medroxyPROGESTERone 5MG TABLET PO SCH (08:04)
[2021-11-12] MEDS: PARoxetine 20MG TABLET PO SCH (08:04)
[2021-11-12] MEDS: LORazepam 1 MG TAB PO PRN ×2 (09:12→16:07)
[2021-11-12 18:14] VITALS: BP 134/79
[2021-11-12] MEDS: zolPIDEM TARTRATE 5 MG TAB PO SCH (20:15)
[2021-11-12] MEDS: PRAZOSIN 1 MG CAP PO SCH (20:16)
[2021-11-13] MEDS: LORazepam 1 MG TAB PO PRN ×3 (00:14→17:54)
[2021-11-13] MEDS: LEVOTHYROXINE 150MCG TABLET (0.15MG) PO SCH (05:37)
[2021-11-13 06:11] VITALS: BP 133/82
[2021-11-13] MEDS: PARoxetine 20MG TABLET PO SCH (08:16)
[2021-11-13] MEDS: estradioL 1 MG TAB PO SCH (08:16)
[2021-11-13] MEDS: PANTOPRAZOLE 40MG TAB (PROTONIX) PO SCH (08:17)
[2021-11-13] MEDS: medroxyPROGESTERone 5MG TABLET PO SCH (08:17)
[2021-11-13] MEDS: GABAPENTIN 400MG CAP PO SCH ×3 (08:17→21:07)
[2021-11-13 17:41] VITALS: BP 130/81
[2021-11-13] MEDS: diazePAM 5MG TABLET PO PRN (20:18)
[2021-11-13] MEDS: PRAZOSIN 1 MG CAP PO SCH (21:06)
[2021-11-13] MEDS: zolPIDEM TARTRATE 5 MG TAB PO SCH (21:06)
[2021-11-14] MEDS: LEVOTHYROXINE 150MCG TABLET (0.15MG) PO SCH (05:44)
[2021-11-14 06:59] VITALS: BP 112/72
[2021-11-14] MEDS: PANTOPRAZOLE 40MG TAB (PROTONIX) PO SCH (08:32)
[2021-11-14] MEDS: PARoxetine 25MG CR TAB (PAXIL CR) PO SCH (08:32)
[2021-11-14] MEDS: estradioL 1 MG TAB PO SCH (08:32)
[2021-11-14] MEDS: GABAPENTIN 400MG CAP PO SCH ×3 (08:32→22:03)
[2021-11-14] MEDS: medroxyPROGESTERone 5MG TABLET PO SCH (08:34)
[2021-11-14] MEDS: diazePAM 5MG TABLET PO PRN ×2 (11:14→17:37)
[2021-11-14 19:17] VITALS: BP 126/81
[2021-11-14 22:02] VITALS: BP 126/81
[2021-11-14] MEDS: PRAZOSIN 1 MG CAP PO SCH (22:02)
[2021-11-14] MEDS: zolPIDEM TARTRATE 5 MG TAB PO SCH (22:03)
[2021-11-15] MEDS: LEVOTHYROXINE 150MCG TABLET (0.15MG) PO SCH (05:56)
[2021-11-15] MEDS: diazePAM 5MG TABLET PO PRN (06:06)
[2021-11-15 06:20] VITALS: BP 142/93
[2021-11-15] MEDS ORDERED: MINI1CAP PO (08:50)
[2021-11-15] MEDS ORDERED: SENN18TA PO (08:50)
[2021-11-15] MEDS ORDERED: PARO25TA11 PO (08:50)
[2021-11-15] MEDS ORDERED: ESTR1TAB3 PO (08:50)
[2021-11-15] MEDS ORDERED: VENTAER INH (08:50)
[2021-11-15] MEDS ORDERED: PANT40TA29 PO (08:50)
[2021-11-15] MEDS ORDERED: ABIL1TAB11 PO (08:50)
[2021-11-15] MEDS ORDERED: ZOLP10TA2 PO (08:50)
[2021-11-15] MEDS ORDERED: EUTH150T PO (08:50)
[2021-11-15] MEDS ORDERED: DIAZ5TAB PO ×2 (08:50→10:54)
[2021-11-15] MEDS ORDERED: MEDR5TAB3 PO (08:50)
[2021-11-15] MEDS ORDERED: GABA-283 PO (08:50)
[2021-11-15] MEDS: PANTOPRAZOLE 40MG TAB (PROTONIX) PO SCH (09:09)
[2021-11-15] MEDS: GABAPENTIN 400MG CAP PO SCH (09:10)
[2021-11-15] MEDS: PARoxetine 25MG CR TAB (PAXIL CR) PO SCH (09:10)
[2021-11-15] MEDS: estradioL 1 MG TAB PO SCH (09:10)
[2021-11-15] MEDS: medroxyPROGESTERone 5MG TABLET PO SCH (09:10)
[2021-11-15] MEDS ORDERED: AMBI5TAB PO (10:54)
[2021-11-16 16:08] LABS: CALPROTECTIN STOOL <16 ug/g (0-120); PANCREATIC ELASTASE STOOL 413 (>200)
[2021-11-16 19:07] LABS: IGASUB2 93.1 mg/dL (73.2-301.2); IGASUB3 14.8 mg/dL (13.4-97.9)
== END 2021-11-15 11:50 | disposition home or self-care (01) | DRG 751 ==
LOC: M ED 16:37 → M ED INP 11-05 13:34 → M PSY 11-05 18:55
PROVIDERS: ADMIT Student in an Organized Health Care Education/Training Program; ATTEND Psychiatry & Neurology Psychiatry
DX: F32.1 Major depressive disorder, single episode, moderate (principal); Z91.14 Patient's other noncompliance with medication regimen; R45.851 Suicidal ideations; F43.10 Post-traumatic stress disorder, unspecified; F12.90 Cannabis use, unspecified, uncomplicated; Z88.8 Allergy status to other drugs, medicaments and biological substances; E06.3 Autoimmune thyroiditis; Z79.899 Other long term (current) drug therapy; K21.9 Gastro-esophageal reflux disease without esophagitis; G47.00 Insomnia, unspecified; F17.200 Nicotine dependence, unspecified, uncomplicated; K59.00 Constipation, unspecified; R07.2 Precordial pain

== ENCOUNTER → 2022-01-04 | Outpatient (REF) | payer MEDICAID, OTHER, SELFPAY ==
[~2022-01-04] MED LIST changes: +ABIL1TAB11 PO; +AMBI5TAB PO; +DIAZ5TAB PO; +ESTR1TAB3 PO; +MEDR5TAB3 PO; +MINI1CAP PO; +PANT40TA29 PO; +PARO25TA11 PO; +PREM.6256 PO; +SENN18TA PO; +ZOLP10TA2 PO; +alprazolam PO
[2022-01-04 18:29] LABS: CHOLESTEROL LEVEL 174 MG/DL (<200); CHOLESTEROL RISK RATIO 3.346 (<5); HDL CHOLESTEROL 52 MG/DL (>40); LDL CHOLESTEROL 95 MG/DL (<100); NON-HDL-C 122 MG/DL; THYROID STIMULATING HORMONE 0.032 uIU/ML (0.358-3.740); TRIGLYCERIDES LEVEL 135 MG/DL (<150)
[2022-01-04 19:52] LABS: HEPATITIS C VIRUS ABY INDEX < 0.0 INDEX (<0.8); HIV 1&2 SCREEN CENTAUR NEGATIVE (NEGATIVE)
== END ==
LOC: M LAB REF 16:24
PROVIDERS: ATTEND Physician Assistant
DX: Z11.59 Encounter for screening for other viral diseases (principal); Z11.4 Encounter for screening for human immunodeficiency virus [HIV]; E06.3 Autoimmune thyroiditis

== ENCOUNTER 2022-04-28 16:10 | Emergency (ER) | payer MEDICAID, OTHER, SELFPAY ==
[~2022-04-28] VITALS: Ht 180.3 cm; Wt 121.4 kg
[2022-04-28] MEDS ORDERED: ESTR1TAB PO (16:26)
[2022-04-28] MEDS ORDERED: LUMA21CA (16:26)
[2022-04-28] MEDS ORDERED: NS 1,000 ML IV ONE (17:00)
[2022-04-28] MEDS ORDERED: KETOROLAC 30 MG/ML 1ML VIAL IV ONE (17:00)
[2022-04-28] MEDS ORDERED: ONDANSETRON 4MG 2ML VIAL IV ONE ×2 (17:00→20:10)
[2022-04-28 17:36] LABS: BASO % 0.3 % (0.0-1.0); EOS # 0.3 10^3/uL (0.0-0.5); EOS % 4.1 % (0.0-3.0); HEMATOCRIT 43.8 % (36.0-47.0); HEMOGLOBIN 14.7 g/dl (12.0-15.5); LYMPH # 2.4 10^3/uL (1.5-5.0); LYMPH % 33.7 % (24.0-44.0); MEAN CORPUSCULAR HGB CONC 33.6 g/dl (32.0-36.5); MEAN CORPUSCULAR VOLUME 86.4 fl (80.0-96.0); MONO # 0.7 10^3/uL (0.0-0.8); MONO % 10.1 % (2.0-8.0); NEUTROPHILS # 3.6 10^3/uL (1.5-8.5); NEUTROPHILS % 51.7 % (36.0-66.0); PLATELET COUNT, AUTOMATED 184 10^3/uL (150-450); RED BLOOD COUNT 5.07 10^6/uL (4.00-5.40)
[2022-04-28] MEDS ORDERED: ISOVUE-370 76% 100ML VIAL As Ordered ONE (17:36)
[2022-04-28 17:56] LABS: ALBUMIN 4.2 G/DL (3.2-5.2); BILIRUBIN,DIRECT 0.1 MG/DL (<0.4); BILIRUBIN,TOTAL 0.4 MG/DL (0.3-1.2); MAGNESIUM LEVEL 1.8 MG/DL (1.8-2.4); MB/CK RELATIVE INDEX 0.92 (< OR =4)
[2022-04-28 17:58] LABS: FREE T4 0.86 NG/DL (0.89-1.76); THYROID STIMULATING HORMONE 40.367 uIU/ML (0.55-4.78)
[2022-04-28 18:06] LABS: RSV AMPLIFICATION NEGATIVE (NEGATIVE)
[2022-04-28] MEDS ORDERED: PROMETHAZINE 25MG/ML 1ML VIAL IV ONE (18:15)
[2022-04-28] MEDS ORDERED: ONDANSETRON 4MG ORAL DISINTEGRATING TAB PO ONE (20:10)
[2022-04-28] MEDS ORDERED: ONDA4TAB6 PO (20:13)
[2022-04-28] MEDS ORDERED: CARA1TAB6 PO (20:13)
[2022-04-28 20:23] VITALS: BP 113/75
== END 2022-04-28 20:38 | disposition home or self-care (01) ==
LOC: M ED 16:10
DX: E03.9 Hypothyroidism, unspecified (principal); I44.0 Atrioventricular block, first degree; I44.4 Left anterior fascicular block; F32.A Depression, unspecified; M54.50 Low back pain, unspecified; F12.10 Cannabis abuse, uncomplicated; F41.9 Anxiety disorder, unspecified; K21.9 Gastro-esophageal reflux disease without esophagitis; Z88.6 Allergy status to analgesic agent; Z79.51 Long term (current) use of inhaled steroids; Z79.83 Long term (current) use of bisphosphonates; Z79.891 Long term (current) use of opiate analgesic; Z79.899 Other long term (current) drug therapy
CPT/HCPCS: 71275; 74177; 80047; 80076; 81001; 82550; 82553; 83690; 83735; 84439; 84443; 85025; 87631; 93005; 96374; 96375; 99284; J1885; J2405; J2550

== ENCOUNTER 2022-04-30 13:06 | Observation (INO) | payer MEDICAID ==
[~2022-04-30] VITALS: Ht 180.3 cm; Wt 121.4 kg
[~2022-04-30 13:06] MED LIST changes: +CARA1TAB6 PO; +ESTR1TAB PO; +LUMA21CA
[2022-04-30] MEDS ORDERED: KETOROLAC 30 MG/ML 1ML VIAL IV ONE (16:15)
[2022-04-30] MEDS ORDERED: FAMOTIDINE 20MG/2ML VIAL IVP ONE (16:15)
[2022-04-30] MEDS ORDERED: NS 1,000 ML IV ONE (16:15)
[2022-04-30] MEDS ORDERED: ONDANSETRON 4MG 2ML VIAL IV ONE (16:15)
[2022-04-30 17:13] LABS: HEMATOCRIT 42.5 % (36.0-47.0); MEAN CORPUSCULAR HGB CONC 32.9 g/dl (32.0-36.5); MEAN CORPUSCULAR VOLUME 88.2 fl (80.0-96.0); PLATELET COUNT, AUTOMATED 201 10^3/uL (150-450); RED BLOOD COUNT 4.82 10^6/uL (4.00-5.40); WHITE BLOOD COUNT 9.6 10^3/uL (4.0-10.0)
[2022-04-30] MEDS ORDERED: PROMETHAZINE 25MG/ML 1ML VIAL IV ONE (17:40)
[2022-04-30 17:42] LABS: LIPASE 34 U/L (12-53)
[2022-04-30 17:44] LABS: THYROID STIMULATING HORMONE 30.307 uIU/ML (0.55-4.78)
[2022-04-30 17:45] LABS: ALBUMIN 4.2 G/DL (3.2-5.2); ALKALINE PHOSPHATASE 70 U/L (46-116); ALT/SGPT 41 U/L (7.0-40); AST/SGOT 36 U/L (<34); BILIRUBIN,DIRECT 0.1 MG/DL (<0.4); BILIRUBIN,TOTAL 0.4 MG/DL (0.3-1.2); BLOOD UREA NITROGEN 13 MG/DL (9-23); CARBON DIOXIDE LEVEL 29 MMOL/L (20-31); CHLORIDE LEVEL 105 MMOL/L (98-107); CPK CREATINE PHOSPHOKINASE 328 U/L (34-145); FREE T4 1.09 NG/DL (0.89-1.76); GLUCOSE, FASTING 91 MG/DL (60-100); MB/CK RELATIVE INDEX 0.91 (< OR =4); POTASSIUM SERUM 3.6 MMOL/L (3.5-5.1); SODIUM LEVEL 141 MMOL/L (136-145); TOTAL PROTEIN 7.8 G/DL (5.7-8.2)
[2022-04-30 18:12] LABS: EOSINOPHILS 2 % (0-3); LYMPHOCYTES 44 % (16-44); MONOCYTES 5 % (0-5); NEUTROPHILS 48 % (28-66); PLATELET ESTIMATE NORMAL (NORMAL)
[2022-04-30] MEDS ORDERED: MORPHINE 2 MG/ML 1ML VIAL IV ONE (18:55)
[2022-04-30 19:49] LABS: CREATININE FOR GFR 0.91 MG/DL (0.55-1.30); GLOMERULAR FILTRATION RATE > 60.0 (>60)
[2022-04-30] MEDS ORDERED: ISOVUE-370 76% 100ML VIAL As Ordered ONE (20:45)
[2022-04-30] MEDS ORDERED: PRAZOSIN 1 MG CAP PO SCH (21:00)
[2022-04-30] MEDS ORDERED: MORPHINE 4 MG/ML 1ML VIAL IV ONE (21:20)
[2022-04-30] MEDS ORDERED: ALBU8.5H INH (22:55)
[2022-04-30] MEDS ORDERED: PARO25TA5 PO (22:55)
[2022-04-30] MEDS ORDERED: PANT-23 PO (22:55)
[2022-04-30] MEDS ORDERED: PRAZ1CAP PO (22:55)
[2022-04-30] MEDS ORDERED: GABA-283 PO (22:55)
[2022-04-30] MEDS ORDERED: CARA1TAB6 PO (22:55)
[2022-04-30] MEDS ORDERED: ONDA4TAB6 PO (22:55)
[2022-04-30] MEDS ORDERED: DIAZ5TAB PO (22:55)
[2022-04-30] MEDS ORDERED: SYNT150T PO (22:57)
[2022-04-30] MEDS ORDERED: VITA100093 PO (22:57)
[2022-04-30] MEDS ORDERED: AMBI10TA PO (22:57)
[2022-04-30] MEDS ORDERED: LUMA21CA PO (22:57)
[2022-04-30] MEDS ORDERED: HOME MED LIST COMPLETE! XX SCH (23:00)
[2022-04-30] MEDS ORDERED: ONDANSETRON 4MG ORAL DISINTEGRATING TAB SL PRN (23:45)
[2022-04-30] MEDS ORDERED: ACETAMINOPHEN TAB 650MG DOSE (2X325MG) PO PRN (23:45)
[2022-05-01 02:45] VITALS: BP 136/86
[2022-05-01] MEDS: METOCLOPRAMIDE INJ 10MG/2ML VIAL IV PRN ×2 (03:00→08:19)
[2022-05-01] MEDS: NS 1,000 ML IV SCH ×3 (03:01→09:29)
[2022-05-01] MEDS ORDERED: MORPHINE 2 MG/ML 1ML VIAL IV ONE (04:00)
[2022-05-01] MEDS ORDERED: diazePAM 5MG TABLET PO PRN (04:25)
[2022-05-01] MEDS ORDERED: ALBUTEROL 90 MCG/ACT 8GM HFA INHALER INH PRN (04:25)
[2022-05-01 06:00] VITALS: BP 115/80
[2022-05-01] MEDS ORDERED: LEVOTHYROXINE 150MCG TABLET (0.15MG) PO SCH (06:00)
[2022-05-01] MEDS: MAALOX 30 ML SUSP *UDC PO PRN ×2 (06:10→12:02)
[2022-05-01] MEDS: KETOROLAC 30 MG/ML 1ML VIAL IV PRN ×2 (06:11→08:20)
[2022-05-01 07:53] LABS: HEMATOCRIT 37.8 % (36.0-47.0); HEMOGLOBIN 12.3 g/dl (12.0-15.5); MEAN CORPUSCULAR HEMOGLOBIN 28.5 pg (27.0-33.0); MEAN CORPUSCULAR HGB CONC 32.5 g/dl (32.0-36.5); MEAN CORPUSCULAR VOLUME 87.7 fl (80.0-96.0); PLATELET COUNT, AUTOMATED 170 10^3/uL (150-450); RED BLOOD COUNT 4.31 10^6/uL (4.00-5.40)
[2022-05-01] MEDS: GABAPENTIN 400MG CAP PO SCH ×2 (08:17→15:00)
[2022-05-01 08:58] LABS: ALBUMIN 3.5 G/DL (3.2-5.2); ALKALINE PHOSPHATASE 53 U/L (46-116); ALT/SGPT 35 U/L (7.0-40); AST/SGOT 28 U/L (<34); BILIRUBIN,TOTAL 0.5 MG/DL (0.3-1.2); BLOOD UREA NITROGEN 11 MG/DL (9-23); CALCIUM LEVEL 8.7 MG/DL (8.5-10.1); CARBON DIOXIDE LEVEL 27 MMOL/L (20-31); CHLORIDE LEVEL 109 MMOL/L (98-107); CREATININE FOR GFR 0.96 MG/DL (0.55-1.30); GLOMERULAR FILTRATION RATE > 60.0 (>60); GLUCOSE, FASTING 93 MG/DL (60-100); POTASSIUM SERUM 3.5 MMOL/L (3.5-5.1); SODIUM LEVEL 143 MMOL/L (136-145); TOTAL PROTEIN 6.5 G/DL (5.7-8.2)
[2022-05-01] MEDS ORDERED: ENOXAPARIN 40MG/0.4ML SYRINGE (J1650 PER 10MG) SC SCH (09:00)
[2022-05-01] MEDS ORDERED: estradioL 1 MG TAB PO SCH (09:00)
[2022-05-01] MEDS ORDERED: PANTOPRAZOLE 40MG TAB (PROTONIX) PO SCH (09:00)
[2022-05-01] MEDS ORDERED: PARoxetine 25MG CR TAB (PAXIL CR) PO SCH (09:00)
[2022-05-01] MEDS ORDERED: SUCRALFATE SUSP 1GM/10ML UD PO SCH (12:00)
[2022-05-01 14:00] VITALS: BP 114/75
== END 2022-05-01 15:05 | disposition home or self-care (01) ==
LOC: M ED 13:06 → M ED INP 13:07 → M MSPAV 05-01 02:50
PROVIDERS: ADMIT Family Medicine; ATTEND Internal Medicine
DX: R11.2 Nausea with vomiting, unspecified (principal); R19.7 Diarrhea, unspecified; B97.29 Other coronavirus as the cause of diseases classified elsewhere; E06.3 Autoimmune thyroiditis; R74.01 Elevation of levels of liver transaminase levels; R74.8 Abnormal levels of other serum enzymes; K21.9 Gastro-esophageal reflux disease without esophagitis; R10.13 Epigastric pain; K29.70 Gastritis, unspecified, without bleeding; R07.9 Chest pain, unspecified; K27.9 Peptic ulcer, site unspecified, unspecified as acute or chronic, without hemorrhage or perforation; R13.10 Dysphagia, unspecified; E28.310 Symptomatic premature menopause; Z90.710 Acquired absence of both cervix and uterus; F32.A Depression, unspecified; K58.9 Irritable bowel syndrome, unspecified; F12.90 Cannabis use, unspecified, uncomplicated; R00.1 Bradycardia, unspecified; Z88.5 Allergy status to narcotic agent; Z79.899 Other long term (current) drug therapy; Z79.890 Hormone replacement therapy; Z87.891 Personal history of nicotine dependence
CPT/HCPCS: 36415; 70450; 71275; 80047; 80048; 80053; 80076; 81001; 82550; 82553; 83690; 83880; 84145; 84439; 84443; 85025; 85027; 85379; 87486; 87581; 87633; 87798; 92526; 92610; 93005; 93970; 96361; 96372; 96374; 96375; 96376; 99284; J1650; J1885; J2270; J2405; J2550; J2765; S0028

== ENCOUNTER → 2022-11-20 | Outpatient (REF) | payer BC, MEDICAID ==
[~2022-11-20] MED LIST changes: +ALBU8.5H INH; +AMBI10TA PO; -GABA-283 PO; +GABA-284 PO; +LUMA21CA PO; +PANT-23 PO; +PARO25TA5 PO; +PRAZ1CAP PO; +SENN-111 PO; -SENN18TA PO; +SYNT150T PO; +VITA100093 PO
[2022-11-20 18:44] LABS: BASO % 0.2 % (0.0-1.0); EOS # 0.2 10^3/uL (0.0-0.5); HEMATOCRIT 41.8 % (36.0-47.0); HEMOGLOBIN 13.9 g/dl (12.0-15.5); LYMPH # 2.5 10^3/uL (1.5-5.0); LYMPH % 42.5 % (24.0-44.0); MEAN CORPUSCULAR HEMOGLOBIN 29.8 pg (27.0-33.0); MEAN CORPUSCULAR HGB CONC 33.3 g/dl (32.0-36.5); MEAN CORPUSCULAR VOLUME 89.7 fl (80.0-96.0); MONO # 0.4 10^3/uL (0.0-0.8); MONO % 7.1 % (2.0-8.0); NEUTROPHILS # 2.8 10^3/uL (1.5-8.5); NEUTROPHILS % 46.7 % (36.0-66.0); PLATELET COUNT, AUTOMATED 178 10^3/uL (150-450); RED BLOOD COUNT 4.66 10^6/uL (4.00-5.40)
[2022-11-20 19:09] LABS: THYROID STIMULATING HORMONE 0.718 uIU/ML (0.55-4.78)
[2022-11-20 19:28] LABS: ALKALINE PHOSPHATASE 75 U/L (46-116); ALT/SGPT 32 U/L (7.0-40); AST/SGOT 26 U/L (<34); BILIRUBIN,TOTAL 0.4 MG/DL (0.3-1.2); BLOOD UREA NITROGEN 13 MG/DL (9-23); CALCIUM LEVEL 9.3 MG/DL (8.5-10.1); CARBON DIOXIDE LEVEL 27 MMOL/L (20-31); CHLORIDE LEVEL 104 MMOL/L (98-107); CHOLESTEROL LEVEL 197 MG/DL (<200); CHOLESTEROL RISK RATIO 3.86 (<5); CREATININE FOR GFR 0.84 MG/DL (0.55-1.30); GLOMERULAR FILTRATION RATE > 60.0 (>60); GLUCOSE, FASTING 100 MG/DL (60-100); LDL CHOLESTEROL 120.4 MG/DL (<100); POTASSIUM SERUM 4.6 MMOL/L (3.5-5.1); SODIUM LEVEL 140 MMOL/L (136-145); TOTAL PROTEIN 7.2 G/DL (5.7-8.2); TRIGLYCERIDES LEVEL 128 MG/DL (<150)
[2022-11-24 23:08] LABS: CANNABINOID, URINE Positive (Cutoff=20); CARBOXY THC (GC/MS) >300 ng/mL (Cutoff=10); CREATININE, URINE 180.7 mg/dL (20.0-300.0)
== END ==
LOC: M LAB REF 16:33
PROVIDERS: ATTEND Nurse Practitioner Family
DX: E06.3 Autoimmune thyroiditis (principal); R20.8 Other disturbances of skin sensation; Z79.899 Other long term (current) drug therapy

== ENCOUNTER → 2023-02-07 | Outpatient (CLI) | payer BC, MEDICAID | LOC: M EKG 10:13 | PROVIDERS: ATTEND Nurse Practitioner Family | DX: Z53.9 Procedure and treatment not carried out, unspecified reason (principal) ==

== ENCOUNTER → 2023-03-20 | Outpatient (CLI) | payer BC, MEDICAID ==
[2023-03-20 18:58] LABS: EOS # 0.2 10^3/uL (0.0-0.5); EOS % 2.8 % (0.0-3.0); HEMATOCRIT 41.2 % (36.0-47.0); HEMOGLOBIN 13.9 g/dl (12.0-15.5); LYMPH # 3.4 10^3/uL (1.5-5.0); LYMPH % 43.4 % (24.0-44.0); MEAN CORPUSCULAR HEMOGLOBIN 30.9 pg (27.0-33.0); MEAN CORPUSCULAR HGB CONC 33.7 g/dl (32.0-36.5); MEAN CORPUSCULAR VOLUME 91.6 fl (80.0-96.0); MONO # 0.6 10^3/uL (0.0-0.8); MONO % 7.7 % (2.0-8.0); NEUTROPHILS # 3.6 10^3/uL (1.5-8.5); NEUTROPHILS % 45.8 % (36.0-66.0); PLATELET COUNT, AUTOMATED 185 10^3/uL (150-450); WHITE BLOOD COUNT 7.9 10^3/uL (4.0-10.0)
[2023-03-20 19:08] LABS: ERYTHROCYTE SEDIMENTATION RATE 13 mm/hr (0-20)
[2023-03-20 19:24] LABS: ALBUMIN 3.8 G/DL (3.2-5.2); ALKALINE PHOSPHATASE 65 U/L (46-116); ALT/SGPT 31 U/L (7.0-40); AST/SGOT 20 U/L (<34); BILIRUBIN,TOTAL 0.3 MG/DL (0.3-1.2); BLOOD UREA NITROGEN 13 MG/DL (9-23); CALCIUM LEVEL 8.6 MG/DL (8.5-10.1); CARBON DIOXIDE LEVEL 31 MMOL/L (20-31); CHLORIDE LEVEL 105 MMOL/L (98-107); CREATININE FOR GFR 0.83 MG/DL (0.55-1.30); GLOMERULAR FILTRATION RATE > 60.0 (>60); GLUCOSE, FASTING 82 MG/DL (60-100); POTASSIUM SERUM 3.6 MMOL/L (3.5-5.1); SODIUM LEVEL 142 MMOL/L (136-145); TOTAL PROTEIN 7.8 G/DL (5.7-8.2)
[2023-03-20 19:26] LABS: RHEUMATOID FACTOR QUANT 4.2 IU/ML (<14)
[2023-03-20 19:28] LABS: THYROID STIMULATING HORMONE 0.053 uIU/ML (0.55-4.78)
== END ==
LOC: M LAB 16:41
PROVIDERS: ATTEND Nurse Practitioner Family
DX: R76.8 Other specified abnormal immunological findings in serum (principal)

== ENCOUNTER → 2023-06-04 | Outpatient (CLI) | payer BC, OTHER ==
[2023-06-04 13:23] LABS: EOS # 0.3 10^3/uL (0.0-0.5); EOS % 2.5 % (0.0-3.0); HEMATOCRIT 43.4 % (36.0-47.0); HEMOGLOBIN 14.3 g/dl (12.0-15.5); LYMPH # 3.6 10^3/uL (1.5-5.0); LYMPH % 35.8 % (24.0-44.0); MEAN CORPUSCULAR HEMOGLOBIN 29.4 pg (27.0-33.0); MEAN CORPUSCULAR HGB CONC 32.9 g/dl (32.0-36.5); MEAN CORPUSCULAR VOLUME 89.3 fl (80.0-96.0); MONO # 0.7 10^3/uL (0.0-0.8); MONO % 6.6 % (2.0-8.0); NEUTROPHILS # 5.5 10^3/uL (1.5-8.5); NEUTROPHILS % 54.8 % (36.0-66.0); PLATELET COUNT, AUTOMATED 208 10^3/uL (150-450); RED BLOOD COUNT 4.86 10^6/uL (4.00-5.40)
[2023-06-04 13:37] LABS: ERYTHROCYTE SEDIMENTATION RATE 22 mm/hr (0-20)
[2023-06-04 13:52] LABS: ALBUMIN 4.3 G/DL (3.2-5.2); ALKALINE PHOSPHATASE 57 U/L (46-116); ALT/SGPT 43 U/L (7.0-40); AST/SGOT 33 U/L (<34); BILIRUBIN,TOTAL 0.5 MG/DL (0.3-1.2); BLOOD UREA NITROGEN 12 MG/DL (9-23); CALCIUM LEVEL 9.2 MG/DL (8.5-10.1); CARBON DIOXIDE LEVEL 28 MMOL/L (20-31); CHLORIDE LEVEL 105 MMOL/L (98-107); CREATININE FOR GFR 0.88 MG/DL (0.55-1.30); GLOMERULAR FILTRATION RATE > 60.0 (>60); GLUCOSE, FASTING 94 MG/DL (60-100); SODIUM LEVEL 141 MMOL/L (136-145); TOTAL PROTEIN 7.4 G/DL (5.7-8.2)
[2023-06-04 13:55] LABS: THYROID STIMULATING HORMONE 1.755 uIU/ML (0.55-4.78)
[2023-06-04 17:52] LABS: RHEUMATOID FACTOR QUANT 7.3 IU/ML (<14)
[2023-06-05 23:07] LABS: CYCLIC CITRULLINATED PEPTIDE 4 units (0-19)
== END ==
LOC: M LAB 12:34
PROVIDERS: ATTEND Nurse Practitioner Family
DX: R76.8 Other specified abnormal immunological findings in serum (principal); R00.2 Palpitations

== ENCOUNTER 2023-07-16 12:29 | Emergency (ER) | payer OTHER ==
[~2023-07-16] VITALS: Ht 180.3 cm; Wt 119.4 kg
[~2023-07-16 12:29] MED LIST changes: +BUPR-597; -BUPR300T92
[2023-07-16 13:24] LABS: EOS # 0.2 10^3/uL (0.0-0.5); EOS % 2.5 % (0.0-3.0); HEMATOCRIT 43.5 % (36.0-47.0); HEMOGLOBIN 14.4 g/dl (12.0-15.5); LYMPH # 3.4 10^3/uL (1.5-5.0); LYMPH % 40.7 % (24.0-44.0); MEAN CORPUSCULAR HEMOGLOBIN 29.9 pg (27.0-33.0); MEAN CORPUSCULAR HGB CONC 33.1 g/dl (32.0-36.5); MEAN CORPUSCULAR VOLUME 90.2 fl (80.0-96.0); MONO # 0.5 10^3/uL (0.0-0.8); MONO % 6.3 % (2.0-8.0); NEUTROPHILS # 4.2 10^3/uL (1.5-8.5); NEUTROPHILS % 50.3 % (36.0-66.0); PLATELET COUNT, AUTOMATED 180 10^3/uL (150-450); RED BLOOD COUNT 4.82 10^6/uL (4.00-5.40); WHITE BLOOD COUNT 8.3 10^3/uL (4.0-10.0)
[2023-07-16] MEDS: ONDANSETRON 4MG 2ML VIAL IV ONE (13:37)
[2023-07-16] MEDS: KETOROLAC 30 MG/ML 1ML VIAL IV ONE (13:40)
[2023-07-16 13:45] LABS: ALBUMIN 3.9 G/DL (3.2-5.2); BILIRUBIN,DIRECT 0.3 MG/DL (<0.4); BILIRUBIN,TOTAL 0.3 MG/DL (0.3-1.2); TOTAL PROTEIN 7.5 G/DL (5.7-8.2)
[2023-07-16] MEDS ORDERED: ISOVUE-370 76% 100ML VIAL As Ordered ONE (13:47)
[2023-07-16] MEDS: ACETAMINOPHEN 500 MG TAB PO ONE (14:15)
[2023-07-16 15:13] VITALS: BP 122/78; TEMP 97; O2SAT 97
== END 2023-07-16 15:15 | disposition home or self-care (01) ==
LOC: M ED 12:29
DX: R10.9 Unspecified abdominal pain (principal); K76.0 Fatty (change of) liver, not elsewhere classified; G43.909 Migraine, unspecified, not intractable, without status migrainosus; K21.9 Gastro-esophageal reflux disease without esophagitis; F41.9 Anxiety disorder, unspecified; J45.909 Unspecified asthma, uncomplicated; F12.10 Cannabis abuse, uncomplicated; F10.10 Alcohol abuse, uncomplicated; Z88.5 Allergy status to narcotic agent; Z87.820 Personal history of traumatic brain injury; Z79.52 Long term (current) use of systemic steroids; Z79.810 Long term (current) use of selective estrogen receptor modulators (SERMs); Z79.891 Long term (current) use of opiate analgesic; Z79.899 Other long term (current) drug therapy
CPT/HCPCS: 74177; 80047; 80076; 81001; 83690; 85025; 96374; 96375; 99284; J1885; J2405; Q9967

== ENCOUNTER 2023-11-19 15:21 | Emergency (ER) | payer OTHER ==
[~2023-11-19] VITALS: Ht 180.3 cm; Wt 115.5 kg
[~2023-11-19 15:21] MED LIST changes: +ONDA-282 PO; -ONDA4TAB6 PO
[2023-11-19 15:47] LABS: EOS # 0.2 10^3/uL (0.0-0.5); EOS % 2.3 % (0.0-3.0); HEMATOCRIT 41.7 % (36.0-47.0); HEMOGLOBIN 14.1 g/dl (12.0-15.5); LYMPH % 43.6 % (24.0-44.0); MEAN CORPUSCULAR HEMOGLOBIN 30.6 pg (27.0-33.0); MEAN CORPUSCULAR HGB CONC 33.8 g/dl (32.0-36.5); MEAN CORPUSCULAR VOLUME 90.5 fl (80.0-96.0); MONO # 0.6 10^3/uL (0.0-0.8); MONO % 6.5 % (2.0-8.0); NEUTROPHILS # 4.3 10^3/uL (1.5-8.5); NEUTROPHILS % 47.4 % (36.0-66.0); PLATELET COUNT, AUTOMATED 205 10^3/uL (150-450); RED BLOOD COUNT 4.61 10^6/uL (4.00-5.40); WHITE BLOOD COUNT 9.2 10^3/uL (4.0-10.0)
[2023-11-19 15:58] LABS: INR 0.99; PROTHROMBIN TIME 12.8 SECONDS (12.5-14.5)
[2023-11-19 16:11] LABS: LIPASE 35 U/L (12-53)
[2023-11-19 16:12] LABS: CPK CREATINE PHOSPHOKINASE 288 U/L (34-145)
[2023-11-19 16:13] LABS: ALBUMIN 4.4 G/DL (3.2-5.2); ALKALINE PHOSPHATASE 64 U/L (46-116); ALT/SGPT 26 U/L (7.0-40); AST/SGOT 14 U/L (<34); BILIRUBIN,DIRECT < 0.1 MG/DL (<0.4); BILIRUBIN,TOTAL 0.3 MG/DL (0.3-1.2); BLOOD UREA NITROGEN 14 MG/DL (9-23); CARBON DIOXIDE LEVEL 30 MMOL/L (20-31); CHLORIDE LEVEL 104 MMOL/L (98-107); CK-MB VALUE MASS 2.8 NG/ML (<3.6); CREATININE FOR GFR 0.88 MG/DL (0.55-1.30); GLOMERULAR FILTRATION RATE > 60.0 (>60); GLUCOSE, FASTING 95 MG/DL (60-100); MB/CK RELATIVE INDEX 0.97 (< OR =4); POTASSIUM SERUM 3.7 MMOL/L (3.5-5.1); SODIUM LEVEL 139 MMOL/L (136-145); TOTAL PROTEIN 7.7 G/DL (5.7-8.2)
[2023-11-19] MEDS ORDERED: ISOVUE-370 76% 100ML VIAL As Ordered ONE (16:18)
[2023-11-19] MEDS: KETOROLAC 30 MG/ML 1ML VIAL IV ONE (17:44)
[2023-11-19] MEDS: diazePAM 10MG/2ML SYRINGE IV ONE (19:11)
[2023-11-19] MEDS ORDERED: VALA1TAB5 PO (20:38)
[2023-11-19] MEDS: valACYclovir HCL 500 MG TAB PO ONE (21:06)
[2023-11-19 21:24] VITALS: BP 132/89; TEMP 97.6; O2SAT 98
== END 2023-11-19 21:26 | disposition home or self-care (01) ==
LOC: EDBD 15:21 → M ED 15:21
DX: R07.9 Chest pain, unspecified (principal); B02.8 Zoster with other complications; G51.8 Other disorders of facial nerve; R00.1 Bradycardia, unspecified; Z88.8 Allergy status to other drugs, medicaments and biological substances; Z90.89 Acquired absence of other organs; Z79.52 Long term (current) use of systemic steroids; Z79.83 Long term (current) use of bisphosphonates; Z79.899 Other long term (current) drug therapy
CPT/HCPCS: 70450; 70496; 70498; 70551; 71045; 80048; 80076; 82550; 82553; 83690; 84484; 85025; 85610; 93005; 93041; 94760; 96374; 96375; 99285; J1885; J3360; Q9967

== ENCOUNTER → 2023-11-21 | Outpatient (CLI) | payer OTHER ==
[~2023-11-21] MED LIST changes: +VALA1TAB5 PO
[2023-11-23 13:52] LABS: MUMPS VIRUS IgG ANTIBODY 9.86 AU/mL (>10.99); RUBEOLA IgG ANTIBODY 84.9 AU/mL (>16.49)
== END ==
LOC: M LAB 12:42
PROVIDERS: ATTEND Physician Assistant
DX: Z76.89 Persons encountering health services in other specified circumstances (principal)

== ENCOUNTER → 2024-03-25 | Outpatient (CLI) | payer OTHER ==
[~2024-03-25] MED LIST changes: -SENN-111 PO; +SENN-165 PO
[2024-03-25 18:00] LABS: C REACTIVE PROTEIN QUANTITATIV 0.7 MG/DL (<1.0)
[2024-03-25 18:02] LABS: CHOLESTEROL RISK RATIO 3.48 (<5); HDL CHOLESTEROL 53.7 MG/DL (>40); LDL CHOLESTEROL 109.1 MG/DL (<100); NON-HDL-C 133.3 MG/DL; RHEUMATOID FACTOR QUANT 4.9 IU/ML (<14); THYROID STIMULATING HORMONE 1.78 uIU/ML (0.55-4.78)
== END ==
LOC: M WUC 12:29
PROVIDERS: ATTEND Physician Assistant
DX: K75.81 Nonalcoholic steatohepatitis (NASH) (principal); E78.5 Hyperlipidemia, unspecified; E06.3 Autoimmune thyroiditis; M25.50 Pain in unspecified joint

== ENCOUNTER 2024-06-07 15:46 | Emergency (ER) | payer OTHER ==
[~2024-06-07] VITALS: Ht 180.3 cm; Wt 100.0 kg
[2024-06-07 18:37] VITALS: TEMP 97
[2024-06-07] MEDS: KETOROLAC 60MG 2ML VIAL IM ONE (19:39)
[2024-06-07] MEDS: ACETAMINOPHEN 500 MG TAB PO ONE (20:40)
[2024-06-07] MEDS: ONDANSETRON 4MG ORAL DISINTEGRATING TAB PO ONE (20:40)
[2024-06-07] MEDS ORDERED: NAPR-837 PO (21:40)
[2024-06-07 21:48] VITALS: BP 137/80; O2SAT 98
== END 2024-06-07 21:56 | disposition home or self-care (01) ==
LOC: M ED 15:46
DX: S73.102A Unspecified sprain of left hip, initial encounter (principal); X50.0XXA Overexertion from strenuous movement or load, initial encounter; M51.379 Other intervertebral disc degeneration, lumbosacral region without mention of lumbar back pain or lower extremity pain; M46.1 Sacroiliitis, not elsewhere classified; F31.9 Bipolar disorder, unspecified; E06.3 Autoimmune thyroiditis; Z90.89 Acquired absence of other organs; Z88.8 Allergy status to other drugs, medicaments and biological substances; Y92.009 Unspecified place in unspecified non-institutional (private) residence as the place of occurrence of the external cause; Y93.89 Activity, other specified; Y99.9 Unspecified external cause status; Z79.52 Long term (current) use of systemic steroids; Z79.83 Long term (current) use of bisphosphonates; Z79.899 Other long term (current) drug therapy
CPT/HCPCS: 72131; 73502; 73700; 96372; 99284; J1885

== ENCOUNTER 2024-07-19 10:28 | Emergency (ER) | payer OTHER ==
[~2024-07-19] VITALS: Ht 172.7 cm; Wt 121.4 kg
[~2024-07-19 10:28] MED LIST changes: -AMBI10TA PO; -AMBI5TAB PO; -BUPR-597; +BUPR-766; +MORP-138 PO; -MORP15TASA PO; +ZOLP-532 PO; +ZOLP-533 PO
[2024-07-19 10:43] VITALS: TEMP 96.7
[2024-07-19] MEDS: NS 500 ML IV ONE (11:14)
[2024-07-19] MEDS: ACETAMINOPHEN *IV* 1,000 MG in IV 1 EA IV ONE (11:14)
[2024-07-19] MEDS ORDERED: ISOVUE-370 76% 100ML VIAL As Ordered ONE (11:19)
[2024-07-19 11:20] LABS: BASO % 0.1 % (0.0-1.0); EOS # 0.2 10^3/uL (0.0-0.5); EOS % 1.8 % (0.0-3.0); HEMATOCRIT 40.6 % (36.0-47.0); HEMOGLOBIN 13.6 g/dl (12.0-15.5); LYMPH # 2.7 10^3/uL (1.5-5.0); LYMPH % 26.5 % (24.0-44.0); MEAN CORPUSCULAR HEMOGLOBIN 29.9 pg (27.0-33.0); MEAN CORPUSCULAR HGB CONC 33.5 g/dl (32.0-36.5); MEAN CORPUSCULAR VOLUME 89.2 fl (80.0-96.0); MONO # 0.8 10^3/uL (0.0-0.8); MONO % 7.5 % (2.0-8.0); NEUTROPHILS # 6.6 10^3/uL (1.5-8.5); NEUTROPHILS % 63.8 % (36.0-66.0); PLATELET COUNT, AUTOMATED 212 10^3/uL (150-450); RED BLOOD COUNT 4.55 10^6/uL (4.00-5.40); WHITE BLOOD COUNT 10.3 10^3/uL (4.0-10.0)
[2024-07-19 12:40] LABS: CK-MB VALUE MASS 2.5 NG/ML (<3.6)
[2024-07-19 12:49] LABS: MB/CK RELATIVE INDEX 0.43 (< OR =4)
[2024-07-19 12:57] LABS: LIPASE 23 U/L (12-53)
[2024-07-19 12:59] LABS: ALBUMIN 4.1 G/DL (3.2-5.2); ALKALINE PHOSPHATASE 50 U/L (35-104); ALT/SGPT 47 U/L (7.0-40); AST/SGOT 40 U/L (<34); BILIRUBIN,DIRECT < 0.1 MG/DL (<0.4); BILIRUBIN,TOTAL 0.4 MG/DL (0.3-1.2); BLOOD UREA NITROGEN 10 MG/DL (9-23); CALCIUM LEVEL 8.5 MG/DL (8.5-10.1); CARBON DIOXIDE LEVEL 26 MMOL/L (20-31); CHLORIDE LEVEL 106 MMOL/L (98-107); CREATININE FOR GFR 0.76 MG/DL (0.55-1.30); GLOMERULAR FILTRATION RATE > 90.0 (>60); GLUCOSE, FASTING 101 MG/DL (60-100); POTASSIUM SERUM 3.8 MMOL/L (3.5-5.1); SODIUM LEVEL 142 MMOL/L (136-145); TOTAL PROTEIN 7.1 G/DL (5.7-8.2)
[2024-07-19 13:00] LABS: CK-MB VALUE MASS 2.2 NG/ML (<3.6)
[2024-07-19 13:01] LABS: CPK CREATINE PHOSPHOKINASE 604 U/L (34-145); MB/CK RELATIVE INDEX 0.36 (< OR =4)
[2024-07-19 13:03] LABS: FREE T4 1.26 NG/DL (0.89-1.76); THYROID STIMULATING HORMONE 10.018 uIU/ML (0.55-4.78)
[2024-07-19] MEDS: MORPHINE 4 MG/ML 1ML VIAL IV ONE (13:24)
[2024-07-19] MEDS: KETOROLAC 30 MG/ML 1ML VIAL IV ONE (13:25)
[2024-07-19 14:15] VITALS: BP 121/71
[2024-07-19 14:30] VITALS: O2SAT 98
[2024-07-19] MEDS ORDERED: ONDA-282 PO (14:44)
[2024-07-19] MEDS ORDERED: PERC5TAB12 PO (14:44)
[2024-07-19] MEDS ORDERED: IBUP-1022 PO (14:44)
== END 2024-07-19 15:15 | disposition home or self-care (01) ==
LOC: EDBD 10:28 → M ED 10:28
DX: R07.9 Chest pain, unspecified (principal); R51.9 Headache, unspecified; R04.0 Epistaxis; F12.10 Cannabis abuse, uncomplicated; F10.10 Alcohol abuse, uncomplicated; Z87.820 Personal history of traumatic brain injury; Z79.52 Long term (current) use of systemic steroids; Z79.83 Long term (current) use of bisphosphonates; Z79.899 Other long term (current) drug therapy; Z79.1 Long term (current) use of non-steroidal anti-inflammatories (NSAID)
CPT/HCPCS: 70450; 71045; 71275; 80047; 80048; 80076; 82550; 82553; 83690; 84439; 84443; 84484; 85025; 93005; 93041; 94760; 96365; 96366; 96375; 99285; J0131; J1885; Q9967

== ENCOUNTER 2024-11-18 16:00 | Emergency (ER) | payer OTHER ==
[~2024-11-18] VITALS: Ht 180.3 cm; Wt 121.1 kg
[~2024-11-18 16:00] MED LIST changes: +IBUP600T42 PO; +ZOLP10TA11 PO; -ZOLP10TA2 PO
[2024-11-18 17:37] LABS: BASO # 0.0 10^3/uL (0.0-0.2); BASO % 0.4 % (0.0-1.0); EOS # 0.3 10^3/uL (0.0-0.5); EOS % 3.2 % (0.0-3.0); LYMPH # 3.3 10^3/uL (1.5-5.0); LYMPH % 40.0 % (24.0-44.0); MONO # 0.6 10^3/uL (0.0-0.8); MONO % 7.6 % (2.0-8.0); NEUTROPHILS # 4.0 10^3/uL (1.5-8.5); NEUTROPHILS % 48.4 % (36.0-66.0); PLATELET COUNT, AUTOMATED 224 10^3/uL (150-450)
[2024-11-18 17:47] LABS: INR 0.93
[2024-11-18 17:56] LABS: CPK CREATINE PHOSPHOKINASE 828 U/L (34-145)
[2024-11-18 17:58] LABS: HCG, SERUM QUALITATIVE NEGATIVE (NEGATIVE)
[2024-11-18 17:59] LABS: CALCIUM LEVEL 9.4 MG/DL (8.5-10.1); CARBON DIOXIDE LEVEL 29 MMOL/L (20-31); CHLORIDE LEVEL 104 MMOL/L (98-107); CK-MB VALUE MASS 8.9 NG/ML (<3.6); CREATININE FOR GFR 0.78 MG/DL (0.55-1.30); GLOMERULAR FILTRATION RATE > 90.0 (>60); MB/CK RELATIVE INDEX 1.07 (< OR =4); POTASSIUM SERUM 3.6 MMOL/L (3.5-5.1); SODIUM LEVEL 142 MMOL/L (136-145)
[2024-11-18] MEDS: NS (Normal Saline) 0.9% 1,000 ML IV ONE ×3 (18:00→19:45)
[2024-11-18 18:22] LABS: MAGNESIUM LEVEL 2.1 MG/DL (1.8-2.4)
[2024-11-18 18:26] LABS: FREE T4 1.38 NG/DL (0.89-1.76)
[2024-11-18 19:02] LABS: CK-MB VALUE MASS 7.7 NG/ML (<3.6)
[2024-11-18 19:05] LABS: CPK CREATINE PHOSPHOKINASE 784.0 U/L (34-145); MB/CK RELATIVE INDEX 0.98 (< OR =4)
[2024-11-18 20:16] VITALS: BP 112/55
[2024-11-18] MEDS: KETOROLAC 30 MG/ML 1 ML VIAL IV ONE (20:24)
[2024-11-18 20:30] VITALS: O2SAT 100
[2024-11-18 20:47] VITALS: TEMP 97.3
== END 2024-11-18 20:56 | disposition home or self-care (01) ==
LOC: M ED 16:00
DX: R07.89 Other chest pain (principal); I44.4 Left anterior fascicular block; Z79.52 Long term (current) use of systemic steroids; Z79.899 Other long term (current) drug therapy; Z79.83 Long term (current) use of bisphosphonates
CPT/HCPCS: 71045; 80048; 82550; 82553; 83735; 83880; 84439; 84443; 84484; 84703; 85025; 85610; 85730; 93005; 93041; 94760; 96361; 96374; 99285; J1885

== ENCOUNTER 2025-01-06 15:34 | Observation (INO) | payer OTHER ==
[~2025-01-06] VITALS: Ht 175.3 cm; Wt 123.0 kg
[2025-01-06 16:06] LABS: VENOUS BASE EXCESS -1.1 (-2.0-2.0); VENOUS HCO3 24.1 MMOL/L (23.0-27.0); VENOUS O2 SATURATION 89.2 % (60.0-80.0); VENOUS PARTIAL PRESSURE CO2 41.8 mmHg (38.0-50.0); VENOUS PARTIAL PRESSURE O2 57.5 mmHg (30.0-50.0); VENOUS PH 7.378 UNITS (7.330-7.430); VENOUS STANDARD HCO3 23.4 MMOL/L; VENOUS TOTAL CO2 25.3 MMOL/L (24.0-28.0)
[2025-01-06 16:07] LABS: BASO # 0.0 10^3/uL (0.0-0.2); BASO % 0.2 % (0.0-1.0); EOS # 0.1 10^3/uL (0.0-0.5); EOS % 0.4 % (0.0-3.0); LYMPH # 1.6 10^3/uL (1.5-5.0); LYMPH % 12.4 % (24.0-44.0); MONO # 0.5 10^3/uL (0.0-0.8); MONO % 3.9 % (2.0-8.0); NEUTROPHILS # 10.4 10^3/uL (1.5-8.5); NEUTROPHILS % 82.4 % (36.0-66.0); PLATELET COUNT, AUTOMATED 229 10^3/uL (150-450)
[2025-01-06 16:38] LABS: ALT/SGPT 42 U/L (7.0-40); AST/SGOT 32 U/L (<34); CALCIUM LEVEL 9.3 MG/DL (8.5-10.1); CARBON DIOXIDE LEVEL 25 MMOL/L (20-31); CHLORIDE LEVEL 103 MMOL/L (98-107); CREATININE FOR GFR 0.83 MG/DL (0.55-1.30); GLOMERULAR FILTRATION RATE > 90.0 (>60); MAGNESIUM LEVEL 2.3 MG/DL (1.8-2.4); PHOSPHORUS LEVEL 2.3 MG/DL (2.5-4.9); POTASSIUM SERUM 4.0 MMOL/L (3.5-5.1); SODIUM LEVEL 139 MMOL/L (136-145)
[2025-01-06 16:47] LABS: AMPHETAMINES LEVEL URINE NEGATIVE (NEGATIVE); BARBITURATES URINE NEGATIVE (NEGATIVE); BENZODIAZEPINES URINE NEGATIVE (NEGATIVE); COCAINE METABOLITE URINE NEGATIVE (NEGATIVE); METHADONE URINE NEGATIVE (NEGATIVE); OPIATES URINE NEGATIVE (NEGATIVE); PHENCYCLIDINE URINE NEGATIVE (NEGATIVE)
[2025-01-06 16:49] LABS: CANNABINOIDS URINE POSITIVE (NEGATIVE)
[2025-01-06] MEDS: NS (Normal Saline) 0.9% 1,000 ML IV ONE (17:39)
[2025-01-06] MEDS: ONDANSETRON 4MG/2ML VIAL IV ONE (17:49)
[2025-01-06] MEDS: KETOROLAC 30 MG/ML 1 ML VIAL IV ONE (17:49)
[2025-01-06] MEDS ORDERED: ISOVUE-370 76% 100 ML VIAL As Ordered ONE (18:27)
[2025-01-06] MEDS: HYDROMORPHONE HCL 0.5 MG/0.5 ML SYRINGE IV PRN (18:33)
[2025-01-06 19:49] LABS: CK-MB VALUE MASS 3.4 NG/ML (<3.6)
[2025-01-06 19:50] LABS: CPK CREATINE PHOSPHOKINASE 330.0 U/L (34-145); MB/CK RELATIVE INDEX 1.03 (< OR =4)
[2025-01-06] MEDS: GABAPENTIN 300 MG CAP PO ONE (20:38)
[2025-01-06] MEDS ORDERED: HOME MED LIST COMPLETE! XX SCH (22:30)
[2025-01-07] VITALS (11 sets, daily range): BP systolic 121–168; BP diastolic 67–85; TEMP 97.9–98.7; O2SAT 91–97
[2025-01-07] MEDS: ACETAMINOPHEN 325 MG TAB PO PRN (00:24)
[2025-01-07] MEDS: ENOXAPARIN 40 MG/0.4 ML SYRINGE (J1650 PER 10MG) SC ONE (00:24)
[2025-01-07] MEDS: PRAZOSIN 1 MG CAP PO SCH (01:28)
[2025-01-07] MEDS: ONDANSETRON 4MG ORAL DISINTEGRATING TAB PO PRN (03:18)
[2025-01-07 03:21] LABS: APPEARANCE, URINE CLEAR (CLEAR); BACTERIA, URINE AUTO NEGATIVE (NEGATIVE); BILIRUBIN, URINE AUTO NEGATIVE (NEGATIVE); BLOOD, URINE BLOOD NEGATIVE (NEGATIVE); GLUCOSE, URINE (UA) AUTO NEGATIVE (NEGATIVE); KETONE, URINE AUTO NEGATIVE (NEGATIVE); LEUKOCYTE ESTERASE, URINE AUTO NEGATIVE (NEGATIVE); NITRITE, URINE AUTO NEGATIVE (NEGATIVE); PROTEIN, URINE AUTO NEGATIVE (NEGATIVE); RBC, URINE AUTO 1 /HPF (0-3); SPECIFIC GRAVITY URINE AUTO 1.040 (1.002-1.035); SQUAMOUS EPITHELIAL CELL UR AU 1 /HPF (0-6); UROBILINOGEN, URINE AUTO 0.2 mg/dL (0.0-2.0); WBC, URINE AUTO 1 /HPF (0-3)
[2025-01-07] MEDS: LEVOTHYROXINE 150 MCG TABLET (0.15 MG) PO SCH (05:36)
[2025-01-07 05:47] LABS: PLATELET COUNT, AUTOMATED 208 10^3/uL (150-450)
[2025-01-07 06:19] LABS: CALCIUM LEVEL 9.0 MG/DL (8.5-10.1); CARBON DIOXIDE LEVEL 28 MMOL/L (20-31); CHLORIDE LEVEL 105 MMOL/L (98-107); CREATININE FOR GFR 0.82 MG/DL (0.55-1.30); GLOMERULAR FILTRATION RATE > 90.0 (>60); POTASSIUM SERUM 4.0 MMOL/L (3.5-5.1); SODIUM LEVEL 142 MMOL/L (136-145)
[2025-01-07] MEDS: SUCRALFATE 1 GM TAB PO SCH (08:08)
[2025-01-07] MEDS: PARoxetine 25MG CR TAB (PAXIL CR) PO SCH (08:09)
[2025-01-07] MEDS: GABAPENTIN 400 MG CAP PO SCH (08:09)
[2025-01-07] MEDS: PANTOPRAZOLE 40MG TAB PO SCH (08:09)
[2025-01-07] MEDS: VITAMIN D 1,000 INTERNATIONAL UNITS TABLET PO SCH (08:09)
[2025-01-07] MEDS: PERCOCET 5MG/325MG TAB PO ONE (21:58)
[2025-01-08] VITALS: BP 104/54; TEMP 98.3; O2SAT 97
[2025-01-08] MEDS: BENZONATATE 100 MG CAPSULE PO PRN (03:38)
[2025-01-08 04:00] VITALS: BP 106/49; TEMP 97; O2SAT 97
[2025-01-08 07:48] LABS: BASO # 0.0 10^3/uL (0.0-0.2); BASO % 0.2 % (0.0-1.0); EOS # 0.2 10^3/uL (0.0-0.5); EOS % 1.5 % (0.0-3.0); LYMPH # 3.0 10^3/uL (1.5-5.0); LYMPH % 28.5 % (24.0-44.0); MONO # 0.9 10^3/uL (0.0-0.8); MONO % 8.2 % (2.0-8.0); NEUTROPHILS # 6.5 10^3/uL (1.5-8.5); NEUTROPHILS % 61.3 % (36.0-66.0); PLATELET COUNT, AUTOMATED 174 10^3/uL (150-450)
[2025-01-08 08:00] VITALS: BP 139/84; TEMP 97.3; O2SAT 94
[2025-01-08 08:14] LABS: CALCIUM LEVEL 8.7 MG/DL (8.5-10.1); CARBON DIOXIDE LEVEL 32.0 MMOL/L (20-31); CHLORIDE LEVEL 105.0 MMOL/L (98-107); CREATININE FOR GFR 0.95 MG/DL (0.55-1.30); GLOMERULAR FILTRATION RATE 78.2 (>60); MAGNESIUM LEVEL 2.0 MG/DL (1.8-2.4); POTASSIUM SERUM 3.9 MMOL/L (3.5-5.1); SODIUM LEVEL 143.0 MMOL/L (136-145)
[2025-01-08] MEDS: NYSTATIN 500,000 UNITS/5 ML SUSP UDC SS SCH (08:32)
[2025-01-08 09:21] LABS: HIV 1&2 SCREEN NEGATIVE (NEGATIVE)
[2025-01-08 09:30] LABS: HEPATITIS C VIRUS ABY INDEX < 0.02 INDEX (<0.8)
[2025-01-08 09:34] LABS: ALT/SGPT 36 U/L (7.0-40); AST/SGOT 32 U/L (<34)
[2025-01-08 10:50] LABS: FREE T4 1.27 NG/DL (0.89-1.76)
[2025-01-08] MEDS: NS (Normal Saline) 0.9% 1,000 ML IV SCH (10:51)
[2025-01-08] MEDS ORDERED: BENZ-18 PO (11:04)
[2025-01-08] MEDS ORDERED: NYST-38 SS (11:04)
[2025-01-08 12:00] VITALS: BP 167/74; O2SAT 98
[2025-01-08 13:07] VITALS: BP 147/77
== END 2025-01-08 14:34 | disposition home or self-care (01) ==
LOC: M ED 15:34 → EDBD 15:34 → M ED INP 15:35 → M MS4PR 01-07
PROVIDERS: ADMIT Student in an Organized Health Care Education/Training Program; ATTEND Student in an Organized Health Care Education/Training Program
DX: R56.9 Unspecified convulsions (principal); F41.9 Anxiety disorder, unspecified; F32.A Depression, unspecified; E06.3 Autoimmune thyroiditis; R07.89 Other chest pain; K52.9 Noninfective gastroenteritis and colitis, unspecified; G62.9 Polyneuropathy, unspecified; K21.9 Gastro-esophageal reflux disease without esophagitis; J45.909 Unspecified asthma, uncomplicated; R05.9 Cough, unspecified; B37.0 Candidal stomatitis; Z90.79 Acquired absence of other genital organ(s); Z79.890 Hormone replacement therapy; Z79.899 Other long term (current) drug therapy; Z88.5 Allergy status to narcotic agent
CPT/HCPCS: 36415; 70450; 70551; 71275; 74177; 80047; 80048; 80074; 80076; 80307; 81001; 82140; 82330; 82550; 82553; 82803; 83605; 83735; 84100; 84439; 84443; 84484; 85025; 85027; 87389; 87486; 87581; 87633; 87798; 93041; 94760; 95819; 96361; 96372; 96374; 96375; 96376; 99285; J1171; J1650; J1885; J2405; J3360; Q9967